=== PATIENT | female | born 1940 | race Caucasian/White ===

== ENCOUNTER 2023-04-29 12:58 | Inpatient (IN) ==
--- NOTE | 2023-04-29 13:13 | Emergency Department Note ---
Impression & Plan Complete heart block, Generalized weakness ED Provider Note Name: AMANDA PECK Age: 83 Sex: Female Arrives Via: Ambulance Informant: Patient and EMS (obtain further information via their command call discussing management and evaluation.) ED Provider: Diego Farnsworth MD Chief Complaint: Weakness Impression: As per impressions above Medical Decision Makin-year-old female arrives for evaluation of profound weakness. She is noted to be in complete heart block and was sent here by PCP for finding this. Patient already held her atenolol for the last 2 days because she had been feeling well. No concerns for possible overdose. She does not have any findings of renal failure. No clear cause for this other than primary electrical cardiac. Findings are not consistent with ACS. She is not in pulmonary edema or significant cardiac failure at this point. I consulted cardiology early on in her stay who agree with plan for hospitalization and they will follow along and possible pacemaker tomorrow. Patient without any other complaints they do not feel this is consistent with PE and or other. There is no indication of need for CT angiography at this time. Triage/Nursing Notes reviewed by Me Differential:Complete heart block, type II blocks, electrolyte imbalance, renal failure, ACS, CHF, infectious etiology, many other pathologies considered Vital Signs: reviewed and remarkable for bradycardia Labs:ED labs Reviewed by me and remarkable for no significant abnormalities Imagin view chest x-ray as per my interpretation no infiltrate or effusion appreciated. EKG:As per my interpretation. Indication weakness. Bradycardia with a heart rate of 38. Findings consistent with complete heart block. QTc 450. No ectopy nor ischemia appreciated. When compared to July 11, 2007 EKG she is now in complete heart block Cardiac/Tele Monitoring: Cardiac Monitoring: An Order was placed for continuous cardiac monitoring. The monitor shows a rate of 40 with a heart block rhythm. Consults:Dr Knapp Cardiology, Dr Evangelista [place] Hospitalist Plan: Disposition:Hospitalization. Condition: Good History of Present Illness: 83-year-old female arrives for evaluation of bradycardia. Patient notes that she woke yesterday morning feeling severely fatigued and weak. Notes mild shortness of breath with exertion but no significant breathing difficulty. Denies any chest pain, syncope, lightheadedness, nausea, vomiting, fevers, chills, back pain, abdominal pain or other concerning signs or symptoms. She had not noticed any palpitations or irregular heartbeats. Patient was seen at her PCP office today where she was noted to be severely bradycardic and was sent to the ER for further evaluation. Patient denies any previous cardiac issues other than periodic palpitations over the years that were attributed to anxiety. She does admit that she did not take her atenolol the last 2 mornings just because she was feeling so weak. She does have a history of some swelling in her legs for which she is on as needed Lasix p.o. EMS called and route noting a concern for complete heart block. Hypertension. No interventions prior to arrival given patient awake alert oriented GCS 15. Past Medical History: GERD, hypertension, anxiety/depression Home Medications:See Below Allergies: penicillin and amoxicillin Vitals:Blood Pressure: 178/68, Pulse 34, RR 13, T 36.7C, O2 93% on RA Physical Exam: GENERAL: Patient is well appearing and in no acute distress. RESPIRATORY: No dyspnea. Clear to auscultation and equal bilaterally. CARDIOVASCULAR: Bradycardia GASTROINTESTINAL: Abdomen soft, non-tender, no peritonitis. EXTREMITIES: Normal motion all extremities, no cyanosis, no edema. NEUROLOGIC: Alert and oriented. No focal neurologic deficits appreciated SKIN: No rash, no jaundice, no diaphoresis. PSYCH: Appropriate GCS: 15 ED Course: Times/Reassessments: Patient stable throughout she is comfortable in no distress. Diego Farnsworth MD Past Med/Surg History Medical History Degenerative joint disease of left knee Sciatica Acute sinusitis Anxiety Esophageal reflux Hypertension Impaired fasting glucose Noncompliance with treatment Osteoarthritis Supraventricular tachycardia Thyroid disorder Vitamin D deficiency Surgical History No pertinent past surgical history Family History Father Congestive heart failure Mother Myocardial infarction Denies family history of Ovarian cancer Prostate cancer Breast cancer Lung cancer Colorectal cancer Social History Smoking Status: Never smoker Second Hand Exposure: No; Do You Dip or Chew Tobacco: No; Hx Alcohol Use: No Hx Substance Use: No Preferred Language: Andorran Communication Ability: Effective Visual Impairment: No Limitations Hearing Ability: Normal Nurse Wound Required: No marital status: / Current Living Situation: Alone current occupational status: retired Feels Safe at Home: Yes Childhood Exposure to Second-Hand Smoke: No Diet: regular caffeine: No during the past year weight has: remained stable Dental Care, Regularly: Yes Physical Activity Frequency: 1-2 Times per Week Seatbelt Use: always Sunscreen Use: No Assistive Devices: None Allergies Allergies Allergy/AdvReac Type Severity Reaction Status Date / Time Penicillins Allergy Mild Rash Verified 04/29/23 11:32 amoxicillin [From Amoxil] AdvReac Rash Verified 04/29/23 11:32 Home Meds Home Medications Medication Instructions Recorded Confirmed famotidine 20 mg tablet (Pepcid) 20 mg PO DAILY 12/12/18 04/29/23 glucosamine sulfate 500 mg tablet 500 mg PO TID 12/12/18 04/29/23 (Glucosamine) multivitamin,rw-[id number]-[id number] 1 tab PO DAILY 12/12/18 04/29/23 (Complete Multivitamin tablet) cholecalciferol (vitamin D3) 25 25 mcg PO DAILY 03/19/23 04/29/23 mcg (1,000 unit) tablet Previous Rx's Medication Instructions Recorded atenolol 25 mg tablet 25 mg PO DAILY #90 tabs 03/09/23 buspirone 5 mg tablet 5 mg PO TID #270 tabs 03/17/23 furosemide 20 mg tablet See Rx Instructions PO Q OTHER DAY 04/16/23 PRN Fluid Retention #30 tabs Results & Data (ED) Vital Signs Vital Signs - 24 hr 04/29/23 13:04 04/29/23 13:04 04/29/23 13:06 Temperature 36.7 C Temperature Source Oral Pulse Rate 36 L 36 L Pulse Rate from SpO2 Sensor 36 L Respiratory Rate 22 Respiratory Effort / Characteristics Non-Labored Spontaneous Respiratory Depth Normal Respiratory Pattern Regular Blood Pressure 198/63 H Blood Pressure Mean 108 Pulse Oximetry 94 94 94 Oxygen Delivery Method Room Air Room Air Oxygen Flow Rate 0 Sepsis Recent Fever Within 48 Hours No Sepsis New/Unexplained Change in Mental Status N/A Sepsis Action Taken by Nursing No Action Required 04/29/23 13:10 04/29/23 13:13 04/29/23 13:13 Temperature Temperature Source Pulse Rate 35 L 35 L Pulse Rate from SpO2 Sensor 35 L Respiratory Rate 17 16 Respiratory Effort / Characteristics Respiratory Depth Respiratory Pattern Blood Pressure 201/61 H Blood Pressure Mean 77 Pulse Oximetry 92 Oxygen Delivery Method Oxygen Flow Rate Sepsis Recent Fever Within 48 Hours Sepsis New/Unexplained Change in Mental Status Sepsis Action Taken by Nursing 04/29/23 13:16 04/29/23 13:16 04/29/23 13:20 Temperature Temperature Source Pulse Rate 34 L 34 L Pulse Rate from SpO2 Sensor 34 L 34 L Respiratory Rate 13 7 L Respiratory Effort / Characteristics Respiratory Depth Respiratory Pattern Blood Pressure 188/54 H Blood Pressure Mean 103 Pulse Oximetry 92 95 Oxygen Delivery Method Room Air Oxygen Flow Rate Sepsis Recent Fever Within 48 Hours Sepsis New/Unexplained Change in Mental Status Sepsis Action Taken by Nursing 04/29/23 13:30 04/29/23 13:30 04/29/23 13:31 Temperature Temperature Source Pulse Rate 34 L 35 L Pulse Rate from SpO2 Sensor 35 L Respiratory Rate 10 L Respiratory Effort / Characteristics Respiratory Depth Respiratory Pattern Blood Pressure 180/80 H Blood Pressure Mean 136 Pulse Oximetry 93 Oxygen Delivery Method Oxygen Flow Rate Sepsis Recent Fever Within 48 Hours Sepsis New/Unexplained Change in Mental Status Sepsis Action Taken by Nursing 04/29/23 13:40 04/29/23 13:45 04/29/23 13:45 Temperature Temperature Source Pulse Rate 34 L 35 L Pulse Rate from SpO2 Sensor 34 L 35 L Respiratory Rate 11 L 10 L Respiratory Effort / Characteristics Respiratory Depth Respiratory Pattern Blood Pressure 174/81 H Blood Pressure Mean 131 Pulse Oximetry 95 94 Oxygen Delivery Method Oxygen Flow Rate Sepsis Recent Fever Within 48 Hours Sepsis New/Unexplained Change in Mental Status Sepsis Action Taken by Nursing 04/29/23 13:50 04/29/23 14:00 04/29/23 14:00 Temperature Temperature Source Pulse Rate 34 L 33 L Pulse Rate from SpO2 Sensor 34 L 33 L Respiratory Rate 20 16 Respiratory Effort / Characteristics Respiratory Depth Respiratory Pattern Blood Pressure 166/72 H Blood Pressure Mean 106 Pulse Oximetry 95 94 Oxygen Delivery Method Oxygen Flow Rate Sepsis Recent Fever Within 48 Hours Sepsis New/Unexplained Change in Mental Status Sepsis Action Taken by Nursing 04/29/23 14:10 04/29/23 14:20 04/29/23 14:30 Temperature Temperature Source Pulse Rate 34 L 35 L 35 L Pulse Rate from SpO2 Sensor 33 L 37 L 36 L Respiratory Rate 15 13 19 Respiratory Effort / Characteristics Respiratory Depth Respiratory Pattern Blood Pressure Blood Pressure Mean Pulse Oximetry 95 93 93 Oxygen Delivery Method Oxygen Flow Rate Sepsis Recent Fever Within 48 Hours Sepsis New/Unexplained Change in Mental Status Sepsis Action Taken by Nursing 04/29/23 14:32 04/29/23 14:32 04/29/23 14:40 Temperature Temperature Source Pulse Rate 35 L 34 L Pulse Rate from SpO2 Sensor 35 L 34 L Respiratory Rate 3 L 12 Respiratory Effort / Characteristics Respiratory Depth Respiratory Pattern Blood Pressure 191/65 H Blood Pressure Mean 95 Pulse Oximetry 94 94 Oxygen Delivery Method Oxygen Flow Rate Sepsis Recent Fever Within 48 Hours Sepsis New/Unexplained Change in Mental Status Sepsis Action Taken by Nursing 04/29/23 14:46 04/29/23 14:46 04/29/23 14:50 Temperature Temperature Source Pulse Rate 34 L 33 L Pulse Rate from SpO2 Sensor 34 L 33 L Respiratory Rate 12 16 Respiratory Effort / Characteristics Respiratory Depth Respiratory Pattern Blood Pressure 175/64 H Blood Pressure Mean 115 Pulse Oximetry 95 96 Oxygen Delivery Method Oxygen Flow Rate Sepsis Recent Fever Within 48 Hours Sepsis New/Unexplained Change in Mental Status Sepsis Action Taken by Nursing 04/29/23 15:00 04/29/23 15:01 04/29/23 15:01 Temperature Temperature Source Pulse Rate 32 L 33 L Pulse Rate from SpO2 Sensor 35 L 33 L Respiratory Rate 12 14 Respiratory Effort / Characteristics Respiratory Depth Respiratory Pattern Blood Pressure 170/56 H Blood Pressure Mean 93 Pulse Oximetry 93 93 Oxygen Delivery Method Oxygen Flow Rate Sepsis Recent Fever Within 48 Hours Sepsis New/Unexplained Change in Mental Status Sepsis Action Taken by Nursing 04/29/23 15:10 04/29/23 15:16 04/29/23 15:16 Temperature Temperature Source Pulse Rate 33 L 32 L Pulse Rate from SpO2 Sensor 33 L 32 L Respiratory Rate 10 L 9 L Respiratory Effort / Characteristics Respiratory Depth Respiratory Pattern Blood Pressure 168/56 H Blood Pressure Mean 106 Pulse Oximetry 95 94 Oxygen Delivery Method Oxygen Flow Rate Sepsis Recent Fever Within 48 Hours Sepsis New/Unexplained Change in Mental Status Sepsis Action Taken by Nursing 04/29/23 15:20 04/29/23 15:30 04/29/23 15:31 Temperature Temperature Source Pulse Rate 33 L 34 L 33 L Pulse Rate from SpO2 Sensor 33 L 35 L 33 L Respiratory Rate 13 15 15 Respiratory Effort / Characteristics Respiratory Depth Respiratory Pattern Blood Pressure Blood Pressure Mean Pulse Oximetry 93 93 93 Oxygen Delivery Method Room Air Oxygen Flow Rate Sepsis Recent Fever Within 48 Hours Sepsis New/Unexplained Change in Mental Status Sepsis Action Taken by Nursing 04/29/23 15:31 04/29/23 15:40 02/15/24 15:45 Temperature Temperature Source Pulse Rate 32 L Pulse Rate from SpO2 Sensor 33 L Respiratory Rate 15 Respiratory Effort / Characteristics Respiratory Depth Respiratory Pattern Blood Pressure 161/62 H 172/69 H Blood Pressure Mean 102 124 Pulse Oximetry 93 Oxygen Delivery Method Oxygen Flow Rate Sepsis Recent Fever Within 48 Hours Sepsis New/Unexplained Change in Mental Status Sepsis Action Taken by Nursing 04/29/23 15:45 04/29/23 15:50 04/29/23 16:00 Temperature Temperature Source Pulse Rate 34 L 33 L Pulse Rate from SpO2 Sensor 34 L 33 L Respiratory Rate 15 15 Respiratory Effort / Characteristics Respiratory Depth Respiratory Pattern Blood Pressure 161/64 H Blood Pressure Mean 127 Pulse Oximetry 94 93 Oxygen Delivery Method Oxygen Flow Rate Sepsis Recent Fever Within 48 Hours Sepsis New/Unexplained Change in Mental Status Sepsis Action Taken by Nursing 04/29/23 16:00 04/29/23 16:10 04/29/23 16:15 Temperature Temperature Source Pulse Rate 33 L 32 L 33 L Pulse Rate from SpO2 Sensor 34 L 34 L 33 L Respiratory Rate 13 Respiratory Effort / Characteristics Respiratory Depth Respiratory Pattern Blood Pressure Blood Pressure Mean Pulse Oximetry 93 92 93 Oxygen Delivery Method Oxygen Flow Rate Sepsis Recent Fever Within 48 Hours Sepsis New/Unexplained Change in Mental Status Sepsis Action Taken by Nursing 04/29/23 16:15 04/29/23 16:20 04/29/23 16:30 Temperature Temperature Source Pulse Rate 35 L Pulse Rate from SpO2 Sensor 34 L Respiratory Rate Respiratory Effort / Characteristics Respiratory Depth Respiratory Pattern Blood Pressure 161/68 H 178/68 H Blood Pressure Mean 127 128 Pulse Oximetry 93 Oxygen Delivery Method Oxygen Flow Rate Sepsis Recent Fever Within 48 Hours Sepsis New/Unexplained Change in Mental Status Sepsis Action Taken by Nursing 04/29/23 16:30 Temperature Temperature Source Pulse Rate 34 L Pulse Rate from SpO2 Sensor 34 L Respiratory Rate Respiratory Effort / Characteristics Respiratory Depth Respiratory Pattern Blood Pressure Blood Pressure Mean Pulse Oximetry 93 Oxygen Delivery Method Oxygen Flow Rate Sepsis Recent Fever Within 48 Hours Sepsis New/Unexplained Change in Mental Status Sepsis Action Taken by Nursing Laboratory Data 04/29/23 13:10 04/29/23 13:10 Lab Results 04/29/23 Range/Units 13:10 WBC 6.91 (4.8-10.8) K/ul RBC 4.78 (4.20-5.40) M/uL Hgb 15.1 (12.0-16.0) g/dl Hct 44.3 (37.0-47.0) % MCV 92.7 (80.0-100.0) fL MCH 31.6 (25.0-34.0) pg MCHC 34.1 (32.0-36.0) g/dL RDW Std Deviation 45.5 (36.4-46.3) fL RDW Coeff of Kia 13.5 (11.5-14.5) % Plt Count 228 (130-400) K/uL MPV 10.5 (9.4-12.4) fL Immature Gran % (Auto) 0.3 % Neut % (Auto) 57.3 % Lymph % (Auto) 31.1 % [place]in[place] % (Auto) 9.6 % Eos % (Auto) 0.7 % Baso % (Auto) 1.0 % Neut # (Auto) 3.96 (1.40-6.50) K/uL Lymph # (Auto) 2.15 (1.20-3.40) K/uL [place] # (Auto) 0.66 H (0.11-0.59) K/uL Eos # (Auto) 0.05 (0.00-0.50) K/uL Baso # (Auto) 0.07 (0.00-0.20) K/uL Immature Gran # (Auto) 0.02 (0.01-0.20) K/uL PT 10.9 (9.0-12.0) Seconds INR 1.0 (0.9-1.1) APTT 26 (21-31) Seconds PTT Ratio 0.9 Sodium 138 (136-145) mmol/L Potassium 4.1 (3.5-5.1) mmol/L Chloride 106 (98-107) mmol/L Carbon Dioxide 20 L (21-32) mmol/L Anion Gap 12 H (3-11) BUN 19 (6-23) mg/dl Creatinine 1.03 (0.6-1.2) mg/dl Est Cr Clr Drug Dosing 42.3 ml/min Est GFR ( Amer) 57.8 ml/min Est GFR (Non-Af Amer) 49.9 ml/min BUN/Creatinine Ratio 18.4 (10-20) Glucose 122 H (70-99(Fasting)) mg/dl Calcium 9.9 (8.6-10.3) mg/dl Magnesium 2.2 (1.7-2.4) mg/dl Troponin I High Sens 10.0 (0-14) pg/ml B-Natriuretic Peptide 904 H (0-100) pg/ml TSH 3.672 (0.300-4.500) uIu/ml Lyme Disease Screen Negative (Negative) Imaging Data Radiologist's Impression: Chest X-Ray 04/29/23 13:11 XR chest 1V portable HISTORY: weakness COMPARISON: Chest 07/11/2007. FINDINGS: No pneumothorax. No pleural effusions. The cardiac silhouette is mildly enlarged. There is mild elevation of the right hemidiaphragm, unchanged. Mild interstitial thickening which is likely chronic. No focal lung consolidations to suggest a pneumonia. No evidence for pulmonary edema. No acute fractures identified. IMPRESSION: Mild cardiomegaly. Otherwise, no acute process within the chest. ACT 112: Negative or not required by law. Electronically signed by: Mickey Miranda M.D. 04/29/2023 1:30 PM Discharge Plan Visit Data Chief Complaint: Bradycardia ED Provider: Diego Farnsworth Discharge Problem: Complete heart block, Generalized weakness Forms Stand Alone Forms: [employer] [facility] Prescriptions Prescriptions: No Action atenolol 25 mg tablet 25 mg PO DAILY Qty: 90 3RF cholecalciferol (vitamin D3) 25 mcg (1,000 unit) tablet 25 mcg PO DAILY furosemide 20 mg tablet See Rx Instructions PO Q OTHER DAY PRN (Reason: Fluid Retention) Qty: 30 2RF Rx Instructions: Take 1/2 to 1 tablet PO every other day PRN; buspirone 5 mg tablet 5 mg PO TID Qty: 270 3RF famotidine [Pepcid] 20 mg tablet 20 mg PO DAILY glucosamine sulfate [Glucosamine] 500 mg tablet 500 mg PO TID Complete Multivitamin tablet 1 tab PO DAILY Referrals Referrals: Jeanne Recio CRNP [Primary Care Provider] -
--- NOTE | 2023-04-29 13:31 | XRay Report ---
XR chest 1V portable HISTORY: weakness COMPARISON: Chest 07/11/2007. FINDINGS: No pneumothorax. No pleural effusions. The cardiac silhouette is mildly enlarged. There is mild elevation of the right hemidiaphragm, unchanged. Mild interstitial thickening which is likely ch ronic. No focal lung consolidations to suggest a pneumonia. No evidence for pulmonary edema. No acute fractures identified. IMPRESSION: Mild cardiomegaly. Otherwise, no acute process within the chest. ACT 112: Negative or not required by law. Electronically signed by: Mickey Miranda M.D. 04/29/2023 1:30 PM
[2023-04-29 13:44] LABS: Basophils # (auto) 0.07 K/uL (0.00-0.20); Eosinophils # (auto) 0.05 K/uL (0.00-0.50); Eosinophils % (auto) 0.7 %; Hematocrit (blood only) 44.3 % (37.0-47.0); Hemoglobin 15.1 g/dl (12.0-16.0); Immature Granulocytes # (auto) 0.02 K/uL (0.01-0.20); Immature Granulocytes % (auto) 0.3 %; Lymphocytes # (auto) 2.15 K/uL (1.20-3.40); Lymphocytes % (auto) 31.1 %; Mean Corpuscular Hemoglobin 31.6 pg (25.0-34.0); Mean Corpuscular Hgb Conc 34.1 g/dL (32.0-36.0); Mean Corpuscular Volume 92.7 fL (80.0-100.0); Mean Platelet Volume 10.5 fL (9.4-12.4); Monocytes # (auto) 0.66 K/uL (0.11-0.59); Monocytes % (auto) 9.6 %; Neutrophils # (auto) 3.96 K/uL (1.40-6.50); Neutrophils % (auto) 57.3 %; Platelet Count 228 K/uL (130-400); RDW Coefficient of Variation 13.5 % (11.5-14.5); RDW Standard Deviation 45.5 fL (36.4-46.3); Red Blood Count 4.78 M/uL (4.20-5.40); White Blood Count 6.91 K/ul (4.8-10.8)
[2023-04-29 14:03] LABS: BUN Creatinine Ratio 18.4 (10-20); Calcium 9.9 mg/dl (8.6-10.3); Creatinine Clr Calc Pharmacy 42.3 ml/min; Est GFR (African American) 57.8 ml/min; Est GFR (Non-African American) 49.9 ml/min; Magnesium 2.2 mg/dl (1.7-2.4); Potassium 4.1 mmol/L (3.5-5.1)
[2023-04-29 14:07] LABS: Partial Thromboplastin Ratio 0.9; Partial Thromboplastin Time 26 Seconds (21-31); Prothrombin Time 10.9 Seconds (9.0-12.0)
--- NOTE | 2023-04-29 14:30 | History & Physical Report ---
Date of Service April 29, 2023 Assessment & Plan (1) Symptomatic bradycardia: Plan: Symptomatic bradycardia -Echo completed by cardiology, has mild aortic stenosis otherwise normal on initial read with formal read pending - EKG reviewed. Third-degree heart block. consistent P wave interval ~600ms, ventricular rate of ~35-40 with narrow qrs 76 consistent with third-degree heart block with junctional escape. Without hypotension in the ER TSH normal Magnesium normal Potassium 4.1 -Lyme panel is pending, no other symptoms of this with the exception of left knee pain which is chronic due to arthritis and unchanged Previously on atenolol, this has been held for 2 days due to weakness. Remains held on admission Anticipate pacemaker placement, cardiology consulted, n.p.o. at midnight. Pacer pads in place. At time of admission patient is hemodynamically stable and external pacing is not required - Mild Lower extremity venous stasis. Denies history of CHF. BNP 904. Admitting weight 86 kg, past weights have ranged from 83-86 kg. Chest x-ray without evidence of pulmonary edema or pleural effusions. Mild cardiomegaly is noted Bedside read of echo with no reduced EF. Will treat symptomatic bradycardia above and follow. (2) Osteoarthritis: Plan: Currently left hip and left knee (3) Supraventricular tachycardia: Plan: - Atenolol held. opal on admit (4) Hypertension: Plan: Hypertension Mild fluctuating between [id number] at bedside recheck, suspect reactive. Continue to hold atenolol Treat bradycardia above, and then follow BP trend Plan DVT prophylaxis: Heparin Disposition: PCU Diet: N.p.o. at midnight CODE STATUS: Full code History of Present Illness Primary Care Provider: HUMA Villalobos Linda is an 83-year-old female who presented with weakness and fatigue and he was found to have third-degree heart block while in the ER. Patient presented to her PCP today for weakness and fatigue, and was referred to the ER for symptomatic bradycardia. She is on atenolol at baseline but has not taken this for 2 days. Comparison EKG 06/2007: Sinus with PVCs, AL 180 High-sensitivity troponin is not elevated EKG reviewed. Third-degree heart block. consistent P wave interval ~600ms, ventricular rate of ~40 with narrow qrs 76 consistent with third-degree heart block with junctional escape. Patient seen at the bedside with multiple family members present. She reports that she has had fatigue and global weakness which caused her to present to the ER after an evaluation for this showing bradycardia; she has not had chest pain or chest pressure at any point. She denies syncope. She has not had any falls. She denies palpitations. Denies history of A-fib/a flutter. Denies history of ME. She does not have pets, has not had any recent tick bites, and denies rashes. She does have some left knee arthritis for which she gets injections otherwise denies knee pain. No numbness/tingling or neuropathy. No focal extremity weakness. No vision change. No headache. No prior history of heart Medical History: Reviewed Medications: Reviewed Surgical History: Reviewed Family history: Reviewed Allergies: Reviewed Social History: Reviewed Code Status: Full Allergies Allergy/AdvReac Type Severity Reaction Status Date / Time Penicillins Allergy Mild Rash Verified 04/29/23 11:32 amoxicillin [From Amoxil] AdvReac Rash Verified 04/29/23 11:32 Home Medications Medication Instructions Recorded Confirmed Type famotidine 20 mg tablet (Pepcid) 20 mg PO DAILY 12/12/18 04/29/23 History glucosamine sulfate 500 mg tablet 500 mg PO TID 12/12/18 04/29/23 History (Glucosamine) multivitamin,jc-lhne-ghddvezc 1 tab PO DAILY 12/12/18 04/29/23 History (Complete Multivitamin tablet) atenolol 25 mg tablet 25 mg PO DAILY #90 tabs 03/09/23 04/29/23 Rx buspirone 5 mg tablet 5 mg PO TID #270 tabs 03/17/23 04/29/23 Rx cholecalciferol (vitamin D3) 25 25 mcg PO DAILY 03/19/23 04/29/23 History mcg (1,000 unit) tablet furosemide 20 mg tablet See Rx Instructions PO Q OTHER DAY 04/16/23 04/29/23 Rx PRN Fluid Retention #30 tabs Past Med/Surg History Medical History Degenerative joint disease of left knee Sciatica Acute sinusitis Anxiety Esophageal reflux Hypertension Impaired fasting glucose Noncompliance with treatment Osteoarthritis Supraventricular tachycardia Thyroid disorder Vitamin D deficiency Surgical History No pertinent past surgical history Family History Father Congestive heart failure Mother Myocardial infarction Denies family history of Ovarian cancer Prostate cancer Breast cancer Lung cancer Colorectal cancer Social History Smoking Status: Never smoker Second Hand Exposure: No; Do You Dip or Chew Tobacco: No; Hx Alcohol Use: No Hx Substance Use: No Preferred Language: Egyptian Communication Ability: Effective Visual Impairment: No Limitations Hearing Ability: Normal Dramatic Critic Required: No marital status: / Current Living Situation: Alone current occupational status: retired Feels Safe at Home: Yes Childhood Exposure to Second-Hand Smoke: No Diet: regular caffeine: No during the past year weight has: remained stable Dental Care, Regularly: Yes Physical Activity Frequency: 1-2 Times per Week Seatbelt Use: always Sunscreen Use: No Assistive Devices: None Physical Exam Physical Exam: General: A&Ox3. NAD. Cooperative. Skin: No rashes HEENT: Atrauatic, normocephalic. Vision/hearing intact Pulm: CTAB A&P. -wheezes, -rales, -rhonchi. Symmetrical chest rise. No increased work of breathing. No respiratory distress. Cardiac: regular, bradycardic +sm-rg. Radial pulses intact and symmetrical. Abdominal: Nontender, nondistended, soft. BS present. Results & Data Results & Data Vital Signs (Past 12 Hours) Vital Signs Temp Pulse Resp BP Pulse Ox O2 Del Method O2 Flow Rate 04/29/23 13:31 35 L 04/29/23 13:20 34 L 7 L 95 Room Air 04/29/23 13:16 188/54 H 04/29/23 13:16 34 L 13 92 04/29/23 13:13 201/61 H 04/29/23 13:13 35 L 16 92 04/29/23 13:10 35 L 17 04/29/23 13:06 36 L 94 04/29/23 13:04 94 Room Air 0 04/29/23 13:04 36.7 C 36 L 22 198/63 H 94 Room Air PG Care Time/CCT Total # of Minutes Spent Total Time Spent with Patient: Total time spent is greater than 50% in coordination of care (as documented) at patient's floor/unit and/or counseling patient: Coding Level of Care Code 99074 INT INP/OBS CARE MIN Diagnoses Symptomatic bradycardia R00.1 Osteoarthritis M19.90 Supraventricular tachycardia I47.1 Hypertension I10
--- NOTE | 2023-04-29 15:54 | Cardiology Consultation ---
Date of Consultation April 29, 2023 Assessment & Plan (1) High-grade atrioventricular block: (2) Symptomatic bradycardia: (3) Hypertension: (4) Aortic valve sclerosis: Plan ASSESSMENT/PLAN: 1. High-grade AV block: On telemetry, at times appears to be complete heart block with junctional escape rhythm. But mostly on telemetry and on ECG, high- grade AV block with heart rates remaining in the 30s. Asymptomatic at rest. Recommend bedrest. Pacer pads in place which can be used if she becomes symptomatic at rest. Temporary pacemaker not necessary at this time. Discussed and recommended permanent pacemaker. She was agreeable. Electrophysiology aware and will meet her tomorrow with anticipated pacemaker placement. N.p.o. after midnight. Discontinue her low-dose atenolol (last dose 04/28/23 PM). No obvious reversible cause. 2. Hypertension: Blood pressure elevated but would not aggressively manage with her current high-grade AV block and bradycardia. Avoid AV stacey blocking agents. 3. Sclerotic aortic valve: Borderline stenosis. Discussed with patient. Can be followed over time with surveillance echo in approximately 3 to 5 years or sooner for signs or symptoms of more significant aortic stenosis. 4. Disposition: Electrophysiology, Dr. Quiros, will see her tomorrow. We discussed her presentation. Plan on pacemaker placement tomorrow. Patient care discussed with Dr. Farnsworth of the emergency department, and Dr. Evangelista, of the admitting hospitalist service. Highly complex medical issues. Thank you for allowing me to participate in the care of your patient. Please call for any other questions or concerns. Sincerely, Russ Broussard M.D. History of Present Illness Reason for Consultation: heart block Requesting Physician: Dr. Farnsworth Attending Physician: Dr. Farnsworth History of Present Illness Ms. García is a very pleasant 83-year-old female with a history significant for hypertension and SVT. She presented to the emergency department on 04/29/2023 after going to her PCP office earlier in the day. On 04/28/2023, while ambulating in her home, she felt tired and weak. She denied palpitations, chest pain, shortness of breath. She checked her heart rate this morning and it was in the 30s. She went to her PCP who confirmed heart rate in the 30s. She was instructed to go to the emergency department and went via ambulance. While in the emergency department, she was noted to be in high-grade AV block with heart rates in the 30s and with hypertension. She continued to deny chest pain, shortness of breath, syncope, near syncope, palpitations, edema, or bleeding such as melena, hematochezia, or hematuria. While at rest, she is completely asymptomatic. She does not exercise at home due to bilateral knee pain and describes herself is rather sedentary. She does not spend much time outdoors and does not have any animals such as dogs. She does not recall any recent tick bite. She denies rash, fevers, nausea, vomiting, diarrhea. Review of systems: As above. Review of systems otherwise negative/unremarkable. Family history: No known premature CAD. Father had stroke. Mother had CAD in her 80s. Social history: She denies tobacco, alcohol, drug abuse. She is a . No children. She lives alone. She was accompanied in the ER room by her brother, sister, niece, and nephews. Allergies Allergy/AdvReac Type Severity Reaction Status Date / Time Penicillins Allergy Mild Rash Verified 04/29/23 11:32 amoxicillin [From Amoxil] AdvReac Rash Verified 04/29/23 11:32 Home Medications Medication Instructions Recorded Confirmed Type famotidine 20 mg tablet (Pepcid) 20 mg PO DAILY 12/12/18 04/29/23 History glucosamine sulfate 500 mg tablet 500 mg PO TID 12/12/18 04/29/23 History (Glucosamine) multivitamin,[id number] 1 tab PO DAILY 12/12/18 04/29/23 History (Complete Multivitamin tablet) atenolol 25 mg tablet 25 mg PO DAILY #90 tabs 03/09/23 04/29/23 Rx buspirone 5 mg tablet 5 mg PO TID #270 tabs 03/17/23 04/29/23 Rx cholecalciferol (vitamin D3) 25 25 mcg PO DAILY 03/19/23 04/29/23 History mcg (1,000 unit) tablet furosemide 20 mg tablet See Rx Instructions PO Q OTHER DAY 04/16/23 04/29/23 Rx PRN Fluid Retention #30 tabs Patient History Medical History Degenerative joint disease of left knee Sciatica Acute sinusitis Anxiety Esophageal reflux Hypertension Impaired fasting glucose Noncompliance with treatment Osteoarthritis Supraventricular tachycardia Thyroid disorder Vitamin D deficiency Surgical History No pertinent past surgical history Family History Father Congestive heart failure Mother Myocardial infarction Denies family history of Ovarian cancer Prostate cancer Breast cancer Lung cancer Colorectal cancer Social History Smoking Status: Never smoker Second Hand Exposure: No; Do You Dip or Chew Tobacco: No; Hx Alcohol Use: No Hx Substance Use: No Preferred Language: Hungarian Communication Ability: Effective Visual Impairment: No Limitations Hearing Ability: Normal Line Ordering Clinician Required: No marital status: / Current Living Situation: Alone current occupational status: retired Feels Safe at Home: Yes Childhood Exposure to Second-Hand Smoke: No Diet: regular caffeine: No during the past year weight has: remained stable Dental Care, Regularly: Yes Physical Activity Frequency: 1-2 Times per Week Seatbelt Use: always Sunscreen Use: No Assistive Devices: None Physical Exam Physical Exam: Gen.: No acute distress. Alert and oriented. HEENT: Anicteric sclera. Neck: No significant JVD. No bruits. Normal carotid upstrokes bilaterally. Cardiac: PMI was nondisplaced. No ventricular heave. Regular and bradycardic in the 30s. Normal S1-S2. 1/6 early peaking systolic ejection murmur best heard at the right upper sternal border. Pulmonary: Clear to auscultation bilaterally without wheezes, rales, or rhonchi. Abdomen: Soft, nontender, nondistended, with normoactive bowel sounds. No bruits noted. Extremities: 2+ radial pulses bilaterally. 2+ posterior tibialis pulses bilaterally. No edema or cyanosis. Psychiatric: Affect appears appropriate. Results & Data Vital Signs (Past 12 Hours) Vital Signs Temp Pulse Resp BP Pulse Ox O2 Del Method O2 Flow Rate 04/29/23 15:20 33 L 13 93 Room Air 04/29/23 15:16 32 L 9 L 94 04/29/23 15:16 168/56 H 04/29/23 15:10 33 L 10 L 95 04/29/23 15:01 170/56 H 04/29/23 15:01 33 L 14 93 04/29/23 15:00 32 L 12 93 04/29/23 14:50 33 L 16 96 04/29/23 14:46 34 L 12 95 04/29/23 14:46 175/64 H 04/29/23 14:40 34 L 12 94 04/29/23 14:32 35 L 3 L 94 04/29/23 14:32 191/65 H 04/29/23 14:30 35 L 19 93 04/29/23 14:20 35 L 13 93 04/29/23 14:10 34 L 15 95 04/29/23 14:00 33 L 16 94 04/29/23 14:00 166/72 H 04/29/23 13:50 34 L 20 95 04/29/23 13:45 35 L 10 L 94 04/29/23 13:45 174/81 H 04/29/23 13:40 34 L 11 L 95 04/29/23 13:31 35 L 04/29/23 13:30 180/80 H 04/29/23 13:30 34 L 10 L 93 04/29/23 13:20 34 L 7 L 95 Room Air 04/29/23 13:16 188/54 H 04/29/23 13:16 34 L 13 92 04/29/23 13:13 201/61 H 04/29/23 13:13 35 L 16 92 04/29/23 13:10 35 L 17 04/29/23 13:06 36 L 94 04/29/23 13:04 94 Room Air 0 04/29/23 13:04 36.7 C 36 L 22 198/63 H 94 Room Air Laboratory Results Laboratory Results - last 24 hr 04/29/23 13:10 WBC 6.91 RBC 4.78 Hgb 15.1 Hct 44.3 MCV 92.7 MCH 31.6 MCHC 34.1 RDW Std Deviation 45.5 RDW Coeff of Kia 13.5 Plt Count 228 MPV 10.5 Immature Gran % (Auto) 0.3 Neut % (Auto) 57.3 Lymph % (Auto) 31.1 Clarke % (Auto) 9.6 Eos % (Auto) 0.7 Baso % (Auto) 1.0 Neut # (Auto) 3.96 Lymph # (Auto) 2.15 Clarke # (Auto) 0.66 H Eos # (Auto) 0.05 Baso # (Auto) 0.07 Immature Gran # (Auto) 0.02 PT 10.9 INR 1.0 APTT 26 PTT Ratio 0.9 Sodium 138 Potassium 4.1 Chloride 106 Carbon Dioxide 20 L Anion Gap 12 H BUN 19 Creatinine 1.03 Est Cr Clr Drug Dosing 42.3 Est GFR ( Amer) 57.8 Est GFR (Non-Af Amer) 49.9 BUN/Creatinine Ratio 18.4 Glucose 122 H Calcium 9.9 Magnesium 2.2 Troponin I High Sens 10.0 B-Natriuretic Peptide 904 H TSH 3.672 Lyme Disease Screen Negative Diagnostic Findings ECHO 04/29/23: 1. Normal left ventricular size with hyperdynamic systolic function. EF > 70%. No regional wall motion abnormalities. No left ventricular hypertrophy. 2. Moderate left atrial dilation. 3. Sclerotic aortic valve with borderline stenosis. 4. Mild mitral regurgitation. 5. Mild pulmonary hypertension. Estimated RVSP 45 mmHg. 6. Sinus rhythm with high degree AV block and heart rate in the 30s. 7. No prior study available for comparison. Labs reviewed and notable for negative Lyme, normal TSH, normal magnesium, normal high-sensitivity troponin, elevated BNP, normal potassium, stable renal function, normal blood counts. ECG personally reviewed, which demonstrated sinus rhythm with high-grade AV block and heart rates in the 30s. Telemetry personally reviewed: Sinus rhythm with high-grade AV block with heart rate in the 30s. Chest x-ray 04/29/2023: No acute process per radiology. Mild elevation of the right hemidiaphragm. Mild interstitial thickening, likely chronic per radiology. PG Care Time/CCT Total # of Minutes Spent Total Time Spent with Patient: Total time spent is greater than 50% in coordination of care (as documented) at patient's floor/unit and/or counseling patient: Coding Level of Care Code 29807 INT INP/OBS CARE 3/75MIN Diagnoses High-grade atrioventricular block I44.39 Symptomatic bradycardia R00.1 Hypertension I10 Aortic valve sclerosis I35.8
--- NOTE | 2023-04-29 19:31 | XCELERA ---
[id number]
[2023-04-29] MEDS: HEPARIN SOD 5,000 UNIT/0.5 ML VIAL SQ SCH (21:10)
[2023-04-30 04:46] LABS: Appearance Urine Cloudy (Clear); Bacteria Urine Automated 1+ (Negative); Bilirubin Urine Negative (Negative); Blood Urine Negative (Negative); Color Urine Yellow; Epithelial Cell Urine Auto >30 /lpf (0-5); Glucose Urine UA Negative (Negative); Ketones Urine 1+ (Negative); Leukocyte Esterase Urine 1+ (Negative); Nitrite Urine Negative (Negative); Protein Urine Negative (Negative); Specific Gravity Urine 1.019 (1.000-1.030); Urobilinogen Urine Negative (Negative); pH Urine 6.5 (4.5-7.5)
[2023-04-30 05:50] LABS: RBC Urine Automated 0-4 /hpf (0-4)
[2023-04-30 06:13] LABS: Basophils # (auto) 0.06 K/uL (0.00-0.20); Basophils % (auto) 0.8 %; Eosinophils # (auto) 0.12 K/uL (0.00-0.50); Eosinophils % (auto) 1.6 %; Hematocrit (blood only) 41.2 % (37.0-47.0); Hemoglobin 13.9 g/dl (12.0-16.0); Immature Granulocytes # (auto) 0.02 K/uL (0.01-0.20); Immature Granulocytes % (auto) 0.3 %; Lymphocytes # (auto) 2.78 K/uL (1.20-3.40); Lymphocytes % (auto) 37.1 %; Mean Corpuscular Hemoglobin 31.7 pg (25.0-34.0); Mean Corpuscular Hgb Conc 33.7 g/dL (32.0-36.0); Mean Corpuscular Volume 93.8 fL (80.0-100.0); Mean Platelet Volume 10.4 fL (9.4-12.4); Monocytes # (auto) 0.69 K/uL (0.11-0.59); Monocytes % (auto) 9.2 %; Neutrophils # (auto) 3.83 K/uL (1.40-6.50); Platelet Count 203 K/uL (130-400); RDW Coefficient of Variation 13.5 % (11.5-14.5); RDW Standard Deviation 46.4 fL (36.4-46.3); Red Blood Count 4.39 M/uL (4.20-5.40)
[2023-04-30 06:28] LABS: Calcium 9.4 mg/dl (8.6-10.3); Est GFR (African American) 56.5 ml/min; Est GFR (Non-African American) 48.7 ml/min; Magnesium 2.3 mg/dl (1.7-2.4); Potassium 4.5 mmol/L (3.5-5.1)
--- NOTE | 2023-04-30 11:35 | Electrocardiogram Report ---
Test Reason : Blood Pressure : / mmHG Vent. Rate : 037 BPM Atrial Rate : 037 BPM P-R Int : 238 ms QRS Dur : 076 ms QT Int : 514 ms P-R-T Axes : 068 -14 006 degrees QTc Int : 403 ms Marked sinus bradycardia with 1st degree A-V block and 3:1 AV conduction Minimal voltage criteria for LVH, may be normal variant ( R in aVL ) Cannot rule out Anterior infarct , age undetermined Abnormal ECG When compared with ECG of 11-JUL-2007 16:14, Significant changes have occurred Confirmed by Ruben Rodriguez ([id number]) on 04/30/2023 11:34:53 AM Referred By: REFERRED SELF Confirmed By:Ruben Rodriguez
--- NOTE | 2023-04-30 11:50 | Electrocardiogram Report ---
Test Reason : Blood Pressure : / mmHG Vent. Rate : 031 BPM Atrial Rate : 031 BPM P-R Int : 242 ms QRS Dur : 070 ms QT Int : 588 ms P-R-T Axes : 062 -07 043 degrees QTc Int : 422 ms Marked sinus bradycardia with 1st degree A-V block and 3:1 AV conduction Abnormal ECG When compared with ECG of 29-APR-2023 13:03, (unconfirmed) No significant change was found Confirmed by Ruben Rodriguez ([id number]) on 04/30/2023 11:50:06 AM Referred By: REFERRED SELF Confirmed By:Ruben Rodriguez
--- NOTE | 2023-04-30 12:14 | Hospitalist Progress Note ---
Date of Service April 30, 2023 Assessment & Plan (1) Symptomatic bradycardia: Plan: ECG here with ?3rd degree vs Mobitz 2 With fatigue, no syncope or hypotension and in fact is hypertensive Echo with preserved EF, mild MR TSH normal, yne titer neg Previously on atenolol, this has been held for 2 days prior to admission due to weakness. Remains held here Cardiology consult appreciated-plan for PPM hopefully today Pacer pads in place, bed rest Follow BMP, magnesium, keep lytes replete Continue to monitor on tele (2) Osteoarthritis: Plan: left hip and left knee stable takes glucosamine as outpt (3) Supraventricular tachycardia: Plan: H/o such Atenolol held None here (4) Hypertension: Plan: BPs elevated from beig off atenolol and compensating for bradycardia Continue to hold atenolol Treat bradycardia above, and then follow BP trend (5) Esophageal reflux: Plan: add home pepcid back on Plan DVT prophylaxis: Heparin Disposition: continued stay PCU CODE STATUS: Full code, sister Sandra is POA Admission and Anticipated Discharge Date Admission Date: April 29, 2023 Subjective Pt feeling tired, otherwise denies CP, SOB, lightheadedness BPs running high Tele with sinus rhythm with Mobitz 2 second degree AV block 2:1 conduction on my interpretation some ectopic P waves Physical Exam Constitutional: WD/WN, vitals as above Respiratory: normal respiratory effort, lungs clear to auscultation Cardiovascular: Rate/Rhythm: regular rhythm and + bradycardic Gastrointestinal (Abdomen): normal bowel sounds, soft, nontender, no hepatosplenomegaly Psychiatric: A+Ox3, euthymic affect Results & Data Results & Data Vital Signs (Past 12 Hours) Vital Signs Temp Pulse Pulse Resp BP Pulse Ox O2 Del Method 04/30/23 07:59 39 L 04/30/23 07:25 36.4 C L 33 L 17 150/52 H 93 Room Air 04/30/23 02:35 36.3 C L 38 L 16 160/62 H 94 Room Air Laboratory Results CBC, BMP, magnesium reviewed PG Care Time/CCT Total # of Minutes Spent Total Time Spent with Patient: Total time spent is greater than 50% in coordination of care (as documented) at patient's floor/unit and/or counseling patient: Coding Level of Care Code 38979 SUB INP/OBS CARE 2/35MIN Diagnoses Symptomatic bradycardia R00.1 Osteoarthritis M19.90 Supraventricular tachycardia I47.1 Hypertension I10 Esophageal reflux K21.9
[2023-04-30] MEDS: FAMOTIDINE 20 MG TAB PO SCH (12:27)
[2023-04-30] MEDS: busPIRone 5 MG TAB PO SCH (14:11)
--- NOTE | 2023-04-30 14:38 | Pre Anesthesia Assessment ---
Date of Service April 30, 2023 Pre Sedation Assessment Vital Signs Temp Pulse Pulse Resp BP BP Pulse Ox 04/30/23 14:20 35 L 18 183/91 H 96 04/30/23 13:00 36.5 C 35 L 17 180/68 H 94 04/30/23 07:59 39 L 04/30/23 07:25 36.4 C L 33 L 17 150/52 H 93 04/30/23 02:35 36.3 C L 38 L 16 160/62 H 94 04/29/23 23:00 36.4 C L 34 L 18 163/64 H 95 04/29/23 22:00 32 L 04/29/23 21:45 158/62 H 04/29/23 20:55 36.5 C 35 L 20 181/72 H 94 04/29/23 20:20 37 L 15 04/29/23 20:15 202/93 H 04/29/23 20:15 38 L 04/29/23 20:10 36 L 12 04/29/23 20:00 172/73 H 04/29/23 20:00 33 L 04/29/23 19:50 33 L 17 92 04/29/23 19:46 34 L 92 04/29/23 19:46 186/59 H 04/29/23 19:40 33 L 93 04/29/23 19:30 32 L 94 04/29/23 19:30 169/72 H 04/29/23 19:20 32 L 04/29/23 19:15 33 L 04/29/23 19:15 181/74 H 04/29/23 19:10 33 L 04/29/23 19:00 32 L 04/29/23 19:00 178/81 H 04/29/23 18:50 32 L 04/29/23 18:45 182/78 H 04/29/23 18:45 32 L 04/29/23 18:40 32 L 04/29/23 18:31 172/64 H 04/29/23 18:31 33 L 04/29/23 18:30 32 L 04/29/23 18:20 32 L 12 95 04/29/23 18:15 32 L 94 04/29/23 18:15 170/73 H 04/29/23 18:10 33 L 93 04/29/23 18:00 175/69 H 04/29/23 18:00 33 L 96 04/29/23 17:50 31 L 93 04/29/23 17:45 157/69 H 04/29/23 17:45 32 L 93 04/29/23 17:40 33 L 92 04/29/23 17:30 32 L 94 04/29/23 17:30 162/69 H 04/29/23 17:20 32 L 93 04/29/23 17:15 34 L 93 04/29/23 17:15 157/66 H 04/29/23 17:10 35 L 93 04/29/23 17:10 34 L 04/29/23 17:00 33 L 92 04/29/23 17:00 162/69 H 04/29/23 16:50 34 L 93 04/29/23 16:45 33 L 94 04/29/23 16:45 159/68 H 04/29/23 16:40 33 L 93 04/29/23 16:30 34 L 93 04/29/23 16:30 178/68 H 04/29/23 16:20 35 L 93 04/29/23 16:15 161/68 H 04/29/23 16:15 33 L 93 04/29/23 16:10 32 L 13 92 04/29/23 16:00 33 L 93 04/29/23 16:00 161/64 H 04/29/23 15:50 33 L 15 93 04/29/23 15:45 34 L 15 94 04/29/23 15:45 172/69 H 04/29/23 15:40 32 L 15 93 04/29/23 15:31 161/62 H 04/29/23 15:31 33 L 15 93 04/29/23 15:30 34 L 15 93 04/29/23 15:20 33 L 13 93 04/29/23 15:16 32 L 9 L 94 04/29/23 15:16 168/56 H 04/29/23 15:10 33 L 10 L 95 04/29/23 15:01 170/56 H 04/29/23 15:01 33 L 14 93 04/29/23 15:00 32 L 12 93 04/29/23 14:50 33 L 16 96 04/29/23 14:46 34 L 12 95 04/29/23 14:46 175/64 H 04/29/23 14:40 34 L 12 94 O2 Del Method 04/30/23 14:20 Room Air 04/30/23 13:00 Room Air 04/30/23 07:59 04/30/23 07:25 Room Air 04/30/23 02:35 Room Air 04/29/23 23:00 Room Air 04/29/23 22:00 04/29/23 21:45 04/29/23 20:55 Room Air 04/29/23 20:20 04/29/23 20:15 04/29/23 20:15 04/29/23 20:10 04/29/23 20:00 04/29/23 20:00 04/29/23 19:50 04/29/23 19:46 04/29/23 19:46 04/29/23 19:40 04/29/23 19:30 04/29/23 19:30 04/29/23 19:20 04/29/23 19:15 04/29/23 19:15 04/29/23 19:10 04/29/23 19:00 04/29/23 19:00 04/29/23 18:50 04/29/23 18:45 04/29/23 18:45 04/29/23 18:40 04/29/23 18:31 04/29/23 18:31 04/29/23 18:30 04/29/23 18:20 04/29/23 18:15 04/29/23 18:15 04/29/23 18:10 04/29/23 18:00 04/29/23 18:00 04/29/23 17:50 04/29/23 17:45 04/29/23 17:45 04/29/23 17:40 04/29/23 17:30 04/29/23 17:30 04/29/23 17:20 04/29/23 17:15 04/29/23 17:15 04/29/23 17:10 04/29/23 17:10 04/29/23 17:00 04/29/23 17:00 04/29/23 16:50 04/29/23 16:45 04/29/23 16:45 04/29/23 16:40 04/29/23 16:30 04/29/23 16:30 04/29/23 16:20 04/29/23 16:15 04/29/23 16:15 04/29/23 16:10 04/29/23 16:00 04/29/23 16:00 04/29/23 15:50 04/29/23 15:45 04/29/23 15:45 04/29/23 15:40 04/29/23 15:31 04/29/23 15:31 04/29/23 15:30 04/29/23 15:20 Room Air 04/29/23 15:16 04/29/23 15:16 04/29/23 15:10 04/29/23 15:01 04/29/23 15:01 04/29/23 15:00 04/29/23 14:50 04/29/23 14:46 04/29/23 14:46 04/29/23 14:40 Cardiovascular + bradycardic Respiratory + respiratory effort normal Pre-Sedation Airway Assessment Smoking Status: Never smoker Hx Sleep Apnea: No Hx Difficult Intubation: No Short, Thick Neck: No Thyromental Distance: > or= 3.5 Finger Breadths Oral Cavity: + WNL Mallampati Class: III ASA: ASA3 Procedure Planning Contraindications for Sedation: none Current Medications Reviewed: Yes Notes The planned sedation has been discussed with the patient. Informed Consent was obtained. I have identified the patient, determined the appropriateness of sedation and have assessed the patient immediately prior to the procedure. All medicine(s) and interventions are by my order.
[2023-04-30] MEDS: LIDOCAINE 1% LOCAL 20 ML VIAL ONE (16:54)
[2023-04-30] MEDS: VANCOMYCIN HCL 1000MG/20ML VIAL ONE (16:54)
[2023-04-30] MEDS: WATER, STERILE FOR INJ 10 ML VIAL ONE (16:54)
[2023-04-30] MEDS: BUPIVACAINE 0.25% PF 30 ML VIAL ONE (16:54)
[2023-04-30] MEDS: ceFAZolin 330 MG/ML 1 GM VIAL ONE (16:54)
[2023-04-30] MEDS: fentaNYL citrate PF 100 MCG/2 ML VIAL ONE (16:54)
[2023-04-30] MEDS: ONDANSETRON INJ 2 MG/ML 2 ML VIAL ONE (16:55)
[2023-04-30] MEDS: MIDAZOLAM HCL 5 MG/ML 1 ML VIAL ONE (16:55)
--- NOTE | 2023-04-30 16:57 | Post Anesthesia Assessment ---
Date of Service April 30, 2023 Post Sedation Assessment Vital Signs Temp Pulse Pulse Resp BP BP Pulse Ox 04/30/23 14:20 35 L 18 183/91 H 96 04/30/23 13:00 36.5 C 35 L 17 180/68 H 94 04/30/23 07:59 39 L 04/30/23 07:25 36.4 C L 33 L 17 150/52 H 93 04/30/23 02:35 36.3 C L 38 L 16 160/62 H 94 04/29/23 23:00 36.4 C L 34 L 18 163/64 H 95 04/29/23 22:00 32 L 04/29/23 21:45 158/62 H 04/29/23 20:55 36.5 C 35 L 20 181/72 H 94 04/29/23 20:20 37 L 15 04/29/23 20:15 202/93 H 04/29/23 20:15 38 L 04/29/23 20:10 36 L 12 04/29/23 20:00 172/73 H 04/29/23 20:00 33 L 04/29/23 19:50 33 L 17 92 04/29/23 19:46 34 L 92 04/29/23 19:46 186/59 H 04/29/23 19:40 33 L 93 04/29/23 19:30 32 L 94 04/29/23 19:30 169/72 H 04/29/23 19:20 32 L 04/29/23 19:15 33 L 04/29/23 19:15 181/74 H 04/29/23 19:10 33 L 04/29/23 19:00 32 L 04/29/23 19:00 178/81 H 04/29/23 18:50 32 L 04/29/23 18:45 182/78 H 04/29/23 18:45 32 L 04/29/23 18:40 32 L 04/29/23 18:31 172/64 H 04/29/23 18:31 33 L 04/29/23 18:30 32 L 04/29/23 18:20 32 L 12 95 04/29/23 18:15 32 L 94 04/29/23 18:15 170/73 H 04/29/23 18:10 33 L 93 04/29/23 18:00 175/69 H 04/29/23 18:00 33 L 96 04/29/23 17:50 31 L 93 04/29/23 17:45 157/69 H 04/29/23 17:45 32 L 93 04/29/23 17:40 33 L 92 04/29/23 17:30 32 L 94 04/29/23 17:30 162/69 H 04/29/23 17:20 32 L 93 04/29/23 17:15 34 L 93 04/29/23 17:15 157/66 H 04/29/23 17:10 35 L 93 04/29/23 17:10 34 L 04/29/23 17:00 33 L 92 04/29/23 17:00 162/69 H O2 Del Method 04/30/23 14:20 Room Air 04/30/23 13:00 Room Air 04/30/23 07:59 04/30/23 07:25 Room Air 04/30/23 02:35 Room Air 04/29/23 23:00 Room Air 04/29/23 22:00 04/29/23 21:45 04/29/23 20:55 Room Air 04/29/23 20:20 04/29/23 20:15 04/29/23 20:15 04/29/23 20:10 04/29/23 20:00 04/29/23 20:00 04/29/23 19:50 04/29/23 19:46 04/29/23 19:46 04/29/23 19:40 04/29/23 19:30 04/29/23 19:30 04/29/23 19:20 04/29/23 19:15 04/29/23 19:15 04/29/23 19:10 04/29/23 19:00 04/29/23 19:00 04/29/23 18:50 04/29/23 18:45 04/29/23 18:45 04/29/23 18:40 04/29/23 18:31 04/29/23 18:31 04/29/23 18:30 04/29/23 18:20 04/29/23 18:15 04/29/23 18:15 04/29/23 18:10 04/29/23 18:00 04/29/23 18:00 04/29/23 17:50 04/29/23 17:45 04/29/23 17:45 04/29/23 17:40 04/29/23 17:30 04/29/23 17:30 04/29/23 17:20 04/29/23 17:15 04/29/23 17:15 04/29/23 17:10 04/29/23 17:10 04/29/23 17:00 04/29/23 17:00 Recovery Score Activity: Moves 4 extremities Respiration: Deep Breath/Cough Circulation: +/-20-49% PreAnes Value Consciousness: Fully Awake Oxygen Saturation: > 92% On Room Air Discharge Sedation Level of Care: Fast Track Phase II Post Sedation Plan On clinical assessment, the patient appears to have tolerated the sedation without complications. Patient is recovering as anticipated. Patient will continue to be monitored by nursing and may be discharged when sedation discharge criteria are met per below protocol. Upon Completions of procedure up to 15 minutes continue every 5 minute vital signs and the P.A.R. score; then discharge to a Phase I or Fast Track to Phase II per the following guidelines: * Discharge Patient to appropriate Phase II area if PAR is 8 or greater or return to pre- procedure baseline. The post - procedure orders will be as directed. * If PAR score is less than 8 or not return to pre-procedure baseline then patient will follow Phase I monitoring till PAR is reached for Phase II. The Phase I may be done in procedure room or may call to secure a Phase I area. * If naloxone or flumazenil are used for reversal, hold in Phase I for continued monitoring from when last reversal dose was given for a minimum of 60 minutes or longer pending the nurse and/or physician discretion of patient condition before discharge to Phase II. Please call the Sedation Physician to re-evaluate and complete post-note for discharge to Phase II area. Do NOT discharge from procedure sedation or Phase 1 until post- sedation evaluation note is complete by procedure /sedation MD Sedation Discharge Instructions to be given to the patient at discharge to home.
--- NOTE | 2023-04-30 16:57 | Electrophysiology Report ---
Date of Service April 30, 2023 Electrophysiology Procedure Electrophysiology Procedure Report Procedure performed: Implantation of dual-chamber permanent pacemaker with left bundle pacing lead Staff welfare worker: Jag Quiros MD Indication: The patient is a 3-year-old woman who presents to the hospital with complete heart block. Based on her symptoms she was advised to consider implantation of a permanent pacemaker for symptomatic nonreversible AV node dysfunction. Dual-chamber device was selected she is currently in sinus rhythm which to maintain AV synchrony. Procedure in detail: The patient was informed of the risks benefits and alternatives to the intended procedure and she wished to proceed. She was taken to the electrophysiology suite in a fasting state. A preoperative antibiotic had been administered. The patient was monitored electrocardiographically throughout today's procedure and conscious sedation was administered per protocol. The left upper pectoral area is prepped and draped in usual sterile fashion. This area was anesthetized using subcutaneous administration of a xylocaine solution. An incision was made at this site and carried down to the prepectoralis fascia using sharp dissection. Electrocautery was also employed for dissection as well as for hemostasis. A device pocket was fashioned tissues above the pectoralis muscle. Subsequent to this maneuver the left axillary vein was accessed using modified Seldinger technique. A sheath was placed over guidewire at this site used facilitate passage of a pacing lead to the right ventricular apex under fluoroscopic guidance. This lead was fixed to the endocardium with active fixation and left in place to provide backup pacing while the permanent ventricular lead was placed. A sheath was placed over the remaining guidewire and used facilitate passage of the guiding catheter for mapping of the interventricular septum. Once an appropriate location was identified the pacing lead was advanced into the interventricular septum under fluoroscopic guidance. Adequate sensing threshold parameters well as the appropriate electrocardiographic characteristics were obtained prior to removal of the guiding catheter. The proximal portion of the lead was then sutured to prepectoralis fascia using nonabsorbable suture. The previously placed right ventricular apical lead was subsequently moved to the right atrium under fluoroscopic guidance. Adequate sensing threshold parameters were obtained prior to active fixation of this lead to the endocardial surface. The proximal portion lead was then sutured to prepectoralis fascia using nonabsorbable suture. The device pocket was irrigated with antibiotic solution. The leads were then attached to the device. The device and leads were then placed in the pocket and pocket was closed in 3 layers of absorbable suture. Steri-Strips and sterile dressing were applied. The device was tested noninvasively prior to conclusion the procedure. The patient tolerated procedure well there no immediate complications. Equipment used: New pulse generator: Limo Driver [employer]. Model number: [id number] serial number [id number] Right atrial lead: Limo Driver Medtronic. Model number: [id number] serial number [id number] Right ventricular lead: Limo Driver Medtronic. Model number: [id number] serial number [id number] Measured data: Right atrial lead: P-waves measured 1.6 mV. Pacing threshold 0.75 volts at 0.4 milliseconds with a pacing impedance of 551 Ohms Right ventricular lead: In the bipolar configuration R-waves measured 19.5 mV. Pacing threshold was 1 volts at 0.4 milliseconds with a pacing impedance of 817 Ohms Impression: Successful implantation of dual-chamber permanent pacemaker with left bundle pacing lead [facility] Electrophysiology codes Pacing Procedure 1: Pacin Insert/Replace Pacer A & V PG Moderate Sedation Codes Moderate Sedation Codes Procedure 1: Sedation/Anesthesia: 32893 Mod Sedation by the same physician;Init15 Min Child Age 5 & Up Procedure 2: Sedation/Anesthesia: 98771 Mod Sedation by the same physician; Ea [id number] Minutes
[2023-04-30] MEDS: ACETAMINOPHEN 325 MG TAB PO PRN (23:06)
[2023-05-01] MEDS: ceFAZolin 1000MG 1,000 MG/7.5 ML SYR IV ONE (01:02)
[2023-05-01] MEDS: oxyCODONE HCL IR 5 MG TAB (IMMEDIATE RELEASE) PO PRN (04:04)
[2023-05-01 06:01] LABS: Basophils # (auto) 0.06 K/uL (0.00-0.20); Basophils % (auto) 0.8 %; Eosinophils # (auto) 0.16 K/uL (0.00-0.50); Eosinophils % (auto) 2.1 %; Hematocrit (blood only) 42.5 % (37.0-47.0); Hemoglobin 14.4 g/dl (12.0-16.0); Immature Granulocytes # (auto) 0.01 K/uL (0.01-0.20); Immature Granulocytes % (auto) 0.1 %; Lymphocytes # (auto) 1.88 K/uL (1.20-3.40); Mean Corpuscular Hemoglobin 31.5 pg (25.0-34.0); Mean Corpuscular Hgb Conc 33.9 g/dL (32.0-36.0); Mean Platelet Volume 10.4 fL (9.4-12.4); Monocytes # (auto) 0.71 K/uL (0.11-0.59); Monocytes % (auto) 9.4 %; Neutrophils % (auto) 62.6 %; Platelet Count 182 K/uL (130-400); RDW Coefficient of Variation 13.2 % (11.5-14.5); RDW Standard Deviation 45.3 fL (36.4-46.3); Red Blood Count 4.57 M/uL (4.20-5.40); White Blood Count 7.52 K/ul (4.8-10.8)
[2023-05-01 06:06] LABS: BUN Creatinine Ratio 20.4 (10-20); Calcium 9.1 mg/dl (8.6-10.3); Creatinine Clr Calc Pharmacy 39.5 ml/min; Est GFR (African American) 54.6 ml/min; Est GFR (Non-African American) 47.1 ml/min; Magnesium 2.2 mg/dl (1.7-2.4)
[2023-05-01 07:39] LABS: Influenza A virus by PCR Negative (Neg); Influenza B virus by PCR Negative (Neg); RSV by PCR Negative (Neg); SARS CoV2 RNA(COVID-19) Ceph NEGATIVE (Negative)
--- NOTE | 2023-05-01 07:39 | XRay Report ---
XR chest 2V PA/lateral HISTORY: 83 years-old Female EXACT TIME ORDERED Evaluate for pneumothorax and l status post placemen t of a left subclavian pacer COMPARISON: 04/29/2023 TECHNIQUE: PA and lateral views of the chest FINDINGS: Cardiac silhouette is mildly enlarged. Dual lead left subclavian pacer. Mild right diaphragmatic elev ation. There is no pneumothorax, pleural effusion or pulmonary edema. Bones appear grossly intact. IMPRESSION: Status post placement of a dual-lead left subclavian pacer. No postprocedural pneumothora x identified. ACT 112: Negative or not required by law. The above report was generated using voice recognition software. It may contain grammatical, syntax o r spelling errors. Electronically signed by: Claude Desai M.D. 05/01/2023 7:38 AM
--- NOTE | 2023-05-01 07:53 | Discharge Summary ---
Date of Service May 01, 2023 Admission HPI Per Admitting Provider Linda is an 83-year-old female who presented with weakness and fatigue and he was found to have third-degree heart block while in the ER. Patient presented to her PCP today for weakness and fatigue, and was referred to the ER for symptomatic bradycardia. She is on atenolol at baseline but has not taken this for 2 days. Comparison EKG 06/2007: Sinus with PVCs, MD 180 High-sensitivity troponin is not elevated EKG reviewed. Third-degree heart block. consistent P wave interval ~600ms, ventricular rate of ~40 with narrow qrs 76 consistent with third-degree heart block with junctional escape. Patient seen at the bedside with multiple family members present. She reports that she has had fatigue and global weakness which caused her to present to the ER after an evaluation for this showing bradycardia; she has not had chest pain or chest pressure at any point. She denies syncope. She has not had any falls. She denies palpitations. Denies history of A-fib/a flutter. Denies history of NM. She does not have pets, has not had any recent tick bites, and denies rashes. She does have some left knee arthritis for which she gets injections otherwise denies knee pain. No numbness/tingling or neuropathy. No focal extremity weakness. No vision change. No headache. No prior history of heart Medical History: Reviewed Medications: Reviewed Surgical History: Reviewed Family history: Reviewed Allergies: Reviewed Social History: Reviewed Code Status: Full Admission Exam Per Admitting Provider Gen.: No acute distress. Alert and oriented. HEENT: Anicteric sclera. Neck: No significant JVD. No bruits. Normal carotid upstrokes bilaterally. Cardiac: PMI was nondisplaced. No ventricular heave. Regular and bradycardic in the 30s. Normal S1-S2. 1/6 early peaking systolic ejection murmur best heard at the right upper sternal border. Pulmonary: Clear to auscultation bilaterally without wheezes, rales, or rhonchi. Abdomen: Soft, nontender, nondistended, with normoactive bowel sounds. No bruits noted. Extremities: 2+ radial pulses bilaterally. 2+ posterior tibialis pulses bilaterally. No edema or cyanosis. Psychiatric: Affect appears appropriate. Principal Diagnosis complete heart block Discharge Exam At the time of discharge the patient was feeling well. Oriented. Wound without hematoma. Minimal ecchymosis. No drainage. Mildly tender. Normal respiratory effort Discharge Data Allergies Allergy/AdvReac Type Severity Reaction Status Date / Time Penicillins Allergy Mild Rash Verified 04/29/23 11:32 amoxicillin [From Amoxil] AdvReac Rash Verified 04/29/23 11:32 Consultations 04/29/23 13:14 Consult Cardiology Routine 04/29/23 14:27 ED Decision to Admit Stat Procedures Performed Operation Date: 04/30/23 14:00 Actual Procedures p Pacer with A/V Leads (Dual) - Jag Quiros MD Ordered Studies 04/30/23 07:15 EP Lab Images for PACS ONCE Hospital Course (1) High-grade atrioventricular block: (2) Symptomatic bradycardia: (3) Hypertension: (4) Aortic valve sclerosis: Plan ASSESSMENT/PLAN: 1. High-grade AV block: No reversible cause. On 04/30/2023 she underwent implant of a dual chamber Medtronic pacemaker with left-bundle pacing lead. No complication. On the morning of discharge she was feeling well. Normal device function. CXR demonstrated good lead position and no PTX. 2. Hypertension: BP elevated during stay, but no atenolol given. Restarted at discharge. 3. Sclerotic aortic valve: Borderline stenosis. Discussed with patient. Can be followed over time with surveillance echo in approximately 3 to 5 years or sooner for signs or symptoms of more significant aortic stenosis. 4. Mild mitral regurgitation on her echocardiogram. This can be followed over time. Total Time Total Time Spent Total Time Spent (In Minutes): 20 Discharge Plan Discharge Items Patient Disposition: Home - Self-Care Reason For Visit: SYMPTOMATIC BRADYCARDIA Discharge Diagnosis: heart block Condition on Discharge: Good Activity: Resume your previous activity Lifting: No more than 10 pounds Lifting Comment: No lifting left arm above shoulder or behind neck for 6 weeks Bathing: Keep incision dry Bathing Comment: Keep wound dry and steri-strip intact until f/u next week Driving/Machine Use: Resume 1 day after discharge Non-emergency contact: [employer] Call non-emergency contact if: you have any medication questions, your symptoms worsen, you have a fever, your wound has increased redness and your wound has in creased drainage Follow-up/Referrals: Hemal,Jeanne L., DIRECTOR OF TRAINING [Primary Care Provider] - Diet: Heart Healthy Addtl Attending Provider Instructions: none Pending Studies at Discharge: No Stand-Alone Forms: [facility], Smoking Cessation Medications and DC Order Prescriptions: New oxycodone 5 mg tablet 5 mg PO Q4H PRN (Reason: pain) Qty: 5 0RF Continued atenolol 25 mg tablet 25 mg PO DAILY Qty: 90 3RF cholecalciferol (vitamin D3) 25 mcg (1,000 unit) tablet 25 mcg PO DAILY furosemide 20 mg tablet See Rx Instructions PO Q OTHER DAY PRN (Reason: Fluid Retention) Qty: 30 2RF Rx Instructions: Take 1/2 to 1 tablet PO every other day PRN; buspirone 5 mg tablet 5 mg PO TID Qty: 270 3RF famotidine [Pepcid] 20 mg tablet 20 mg PO DAILY glucosamine sulfate [Glucosamine] 500 mg tablet 500 mg PO TID Complete Multivitamin tablet 1 tab PO DAILY Discharge Orders: Discharge Order (Routine); Ordered 05/01/23 Ordered By: Jag Quiros Admission Data Admit Date/Time: 04/29/23 15:09 Attending Provider: Lisa Mckee Admit Provider: Ayaz Evangelista Primary Care Provider: Jeanne Recio Other Providers: Roque Broussard; Ayaz Evangelista Coding Level of Care Code 31601 IN/OBS DISCH 30 MIN/LESS Diagnoses High-grade atrioventricular block I44.39 Symptomatic bradycardia R00.1 Hypertension I10 Aortic valve sclerosis I35.8
--- NOTE | 2023-05-01 15:13 | Pharmacy Report ---
ED Pharmacist Progress Note - ED Pharmacist Progress Note Date of Service:: May 01, 2023 Notes:: Received call from [facility] re: prescription for oxycodone that was printed. Able to see in chart this prescription was entered and printed upstairs on [address]. Unable to determine why script was printed vs. sent electronically.
--- NOTE | 2023-05-01 18:15 | Electrocardiogram Report ---
Test Reason : Blood Pressure : / mmHG Vent. Rate : 077 BPM Atrial Rate : 077 BPM P-R Int : 144 ms QRS Dur : 132 ms QT Int : 462 ms P-R-T Axes : 010 140 109 degrees QTc Int : 522 ms Atrial-sensed ventricular-paced rhythm Abnormal ECG When compared with ECG of 30-APR-2023 06:02, Electronic ventricular pacemaker has replaced Sinus rhythm Vent. rate has increased BY 46 BPM Confirmed by Sergio Youngblood ([id number]) on 05/01/2023 6:15:01 PM Referred By: REFERRED SELF Confirmed By:Sergio Youngblood
== END 2023-05-01 11:31 | disposition home or self-care (01) | DRG 244 ==
LOC: ED 12:58 → SUATTDRO 15:09 → 4W 15:09

== ENCOUNTER 2025-01-05 14:48 | Inpatient (IN) ==
--- NOTE | 2025-01-05 15:36 | XRay Report ---
XR chest 1V portable CLINICAL HISTORY: sob COMPARISON STUDY: 05/01/2024 FINDINGS: The heart is mildly enlarged. There is a left subclavian dual-chamber central venous pacema ker present. There is mild central vascular prominence without evidence of overt edema. There is no l obar consolidation. There are no pleural effusions. IMPRESSION: Cardiomegaly with mild central pulmonary vascular prominence but no evidence of overt ed neptali. No evidence of focal pulmonary consolidation ACT 112: Negative or not required by law. Electronically signed by: Desmond Green M.D. 01/05/2025 3:34 PM
[2025-01-05 15:45] LABS: Hematocrit (blood only) 38.0 % (37.0-47.0); Hemoglobin 12.5 g/dl (12.0-16.0); Immature Granulocytes # (auto) 0.02 K/uL (0.01-0.20); Immature Granulocytes % (auto) 0.3 %; Mean Corpuscular Hemoglobin 32.1 pg (25.0-34.0); Mean Corpuscular Volume 97.4 fL (80.0-100.0); Platelet Count 185 K/uL (130-400); RDW Standard Deviation 54.8 fL (36.4-46.3); Red Blood Count 3.90 M/uL (4.20-5.40); White Blood Count 7.56 K/ul (4.8-10.8)
[2025-01-05 16:02] LABS: Alanine Aminotransferase 13.0 U/L (7-52); Albumin Globulin Ratio 0.9 (0.9-2); Albumin Level 3.7 gm/dl (3.4-5.0); Alkaline Phosphatase 86.0 U/L (34-104); Anion Gap 11.0 (3-11); Bilirubin,Total 2.1 mg/dl (0.2-1.0); Blood Urea Nitrogen 17.0 mg/dl (6-23); Calcium 9.8 mg/dl (8.6-10.3); Carbon Dioxide 24.0 mmol/L (21-32); Chloride 103.0 mmol/L (98-107); Creatinine Clr Calc Pharmacy 41.3 ml/min; Globulin 4.0 gm/dl (2.5-4.0); Glucose 169.0 mg/dl (70-99(Fasting)); Lipase 66.0 U/L (11-82); Magnesium 2.2 mg/dl (1.7-2.4); Potassium 3.6 mmol/L (3.5-5.1); Sodium 138.0 mmol/L (136-145); Total Protein 7.7 gm/dl (6.0-8.3)
[2025-01-05 16:09] LABS: INR 1.1 (0.9-1.1); Prothrombin Time 11.4 Seconds (9.0-12.0)
[2025-01-05 16:16] LABS: Thyroid Stimulating Hormone 3.056 uIu/ml (0.300-4.500)
--- NOTE | 2025-01-05 17:17 | Emergency Department Note ---
Impression & Plan Bilateral edema of lower extremity, Failure of outpatient treatment, Ambulatory dysfunction, CALIX (dyspnea on exertion) ED Provider Note ED Provider Note NAME: AMANDA PECK AGE:84 SEX: Female : 1940 ARRIVES VIA: Private vehicle INFORMANT: Patient ED PROVIDER(s): Verónica Constantino DO CHIEF COMPLAINT: Worsening leg swelling HPI: This is an 84-year-old female who presents to the emerged primary due to concern for worsening leg swelling over the course of the last month. She states she has seen her PCP several times. She states she was started on Lasix initially at 20 mg, this was then increased to 40 mg, and potassium was also added. She states she tries to elevate her legs when seated and at rest. She states her legs have continued to become more swollen and is more painful and difficult to walk. She states she also feels out of breath and tired even walking in her house. She denies any overt chest pain or abdominal pain. She denies any history of congestive heart failure or kidney problems. Patient does live alone. PAST MEDICAL HISTORY:See Below PAST SURGICAL HISTORY:See Below FAMILY HISTORY:See Below SOCIAL HISTORY:See Below HOME MEDICATIONS:See Below ALLERGIES:See Below VITALS:See Below PHYSICAL EXAMINATION: GENERAL: alert, well appearing, well nourished, no distress, non-toxic EYE EXAM: normal conjunctiva, PERRL and EOM's grossly intact OROPHARYNX: no exudate, no erythema, lips, buccal mucosa, and tongue normal and mucous membranes are moist NECK: supple, no nuchal rigidity, no adenopathy, non-tender LUNGS: Clear to auscultation. Normal chest wall mechanics, no w/r/r HEART: no murmurs, S1 normal and S2 normal ABDOMEN: abdomen soft, non-tender, normo-active bowel sounds, no masses, no rebound or guarding. SKIN: no rashes, petechiae, orbruising UPPER EXTREMITIES: upper extremities are grossly normal. FROM, nml pulses b/l. LOWER EXTREMITIES: 3+ b/l pitting edema up to the knees. FROM, nml pulses b/l. NEURO EXAM: Normal sensorium, cranial nerves II-XII grossly intact, normal speech, no facial droop,nogross weakness of arms, no gross weakness of legs. Gross sensation intact. No ataxia. Vital Signs: reviewed and remarkable Differential Diagnosis: pneumonia, bronchitis, COPD/Asthma exacerbation, congestive heart failure, acute coronary syndrome, CHACE, lymphedema, as well as others were considered MEDICAL DECISION MAKING: This is an 84 yo female who presents to the ER due to concern for persistent/worsening LE edema despite outpatient evaluations and lasix. She was afebrile and VS stable. Labs drawn and sent, IV established, EKG and CXR performed and interpreted at bedside, and patient placed on telemetry. Given worsening symptoms and evidence of pulmonary edema and reported CALIX, we discussed further inpatient mgmt. Case discussed with the hospitalist team for further evaluation. Patient given lasix while in the ER. No hypoxia at rest. Consultation(s): 1745: Discussed with Dr. Monteiro, CT hospitalist team, for additional evaluation and mgmt. ER Treatment Provided: See below Diagnostics Interpreted By Me: -ECG: Paced at 62, leftward axis, prolonged intervals consistent with pacing, nonspecific ST/T wave changes -Cardiac Monitoring: An order was placed for continuous cardiac monitoring. The monitor shows a rate of 62 with paced rhythm. -Laboratory studies: As stated above and show below. -Imaging studies: X-ray Chest: A single view study of the chest was reviewed and was negative for cardiomegaly, focal infiltrate, effusion, or wide mediastinum. Mild pulmonary edema. Triage Nursing Note Reviewed Prior/Outside Records Reviewed - recent outpatient echo from 1 month ago reviewed Past Med/Surg History Problem List (Updated 01/07/25 @ 06:28 by Efra Monteiro MD) Atrial fibrillation Acute CHF (congestive heart failure) CALIX (dyspnea on exertion) (Acute) Ambulatory dysfunction (Acute) Failure of outpatient treatment (Acute) Bilateral edema of lower extremity (Acute) Pulmonary hypertension Degenerative arthritis of knee, bilateral Chondrocalcinosis Bilateral knee pain Lower extremity edema Nephrolithiasis (Acute) 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 04/07/24 Microscopic hematuria (Chronic) Degenerative arthritis of knee, bilateral Pacemaker History of pacemaker Aortic valve sclerosis High-grade atrioventricular block Complete heart block (Acute) Degenerative joint disease of left knee Right hip pain Bilateral leg pain Sciatica Low back pain Peripheral edema Acute sinusitis Anxiety Esophageal reflux Hypertension Impaired fasting glucose Noncompliance with treatment Osteoarthritis Supraventricular tachycardia Thyroid disorder Vitamin D deficiency Medical History Symptomatic bradycardia Surgical History No pertinent past surgical history Family History Father Congestive heart failure Mother Myocardial infarction Denies family history of Ovarian cancer Prostate cancer Breast cancer Lung cancer Colorectal cancer Social History Smoking Status: Never smoker Second Hand Exposure: No; Do You Dip or Chew Tobacco: No; Hx Alcohol Use: No Hx Substance Use: No Preferred Language: Pashto Communication Ability: Effective Visual Impairment: No Limitations Hearing Ability: Normal Networking Engineer Required: No Beliefs That Will Affect Care: None marital status: / Current Living Situation: Alone current occupational status: retired Other Information That Helps Us Care for You: No Feels Safe at Home: Yes Safety Concerns: Feels Safe At This Time Childhood Exposure to Second-Hand Smoke: No Diet: regular caffeine: No during the past year weight has: remained stable Dental Care, Regularly: Yes Physical Activity Frequency: 1-2 Times per Week Seatbelt Use: always Sunscreen Use: No Assistive Devices: Cane and Glasses Allergies Allergies Allergy/AdvReac Type Severity Reaction Status Date / Time Penicillins Allergy Mild Rash Verified 11/23/24 14:33 amoxicillin [From Amoxil] AdvReac Rash Verified 11/23/24 14:33 Home Meds Home Medications Medication Instructions Recorded Confirmed famotidine 20 mg tablet (Pepcid) 0 mg PO DAILY 12/12/18 01/05/25 glucosamine sulfate 500 mg tablet 500 mg PO TID 12/12/18 01/05/25 (Glucosamine) furosemide 40 mg tablet 40 mg PO DAILY PRN Fluid Retention 01/05/25 01/05/25 Previous Rx's Medication Instructions Recorded potassium chloride 10 mEq 10 meq PO DAILY PRN edema #30 tabs 10/31/24 tablet,extended release buspirone 5 mg tablet 5 mg PO TID #270 tabs 11/07/24 atenolol 25 mg tablet 25 mg PO DAILY #90 tabs 11/29/24 Results & Data (ED) Vital Signs Vital Signs - 24 hr 01/05/25 14:51 01/05/25 15:10 01/05/25 15:15 Temperature 36.7 C Temperature Source Temporal Artery Scan Pulse Rate 64 63 Pulse Rate from SpO2 Sensor 63 Respiratory Rate 22 19 Respiratory Effort / Characteristics SOB on Exertion Respiratory Pattern Regular Blood Pressure 153/72 H 140/70 Blood Pressure Mean 99 108 Pulse Oximetry 96 95 Oxygen Delivery Method Room Air Sepsis Recent Fever Within 48 Hours No Sepsis New/Unexplained Change in Mental Status No Sepsis Action Taken by Nursing No Action Required 01/05/25 15:21 01/05/25 15:30 01/05/25 15:39 Temperature Temperature Source Pulse Rate 60 62 Pulse Rate from SpO2 Sensor 60 Respiratory Rate 23 Respiratory Effort / Characteristics Respiratory Pattern Blood Pressure 128/66 Blood Pressure Mean 108 Pulse Oximetry 96 Oxygen Delivery Method Sepsis Recent Fever Within 48 Hours Sepsis New/Unexplained Change in Mental Status Sepsis Action Taken by Nursing 01/05/25 15:39 01/05/25 15:57 01/05/25 16:00 Temperature Temperature Source Pulse Rate 60 60 Pulse Rate from SpO2 Sensor 60 60 Respiratory Rate 23 22 Respiratory Effort / Characteristics Respiratory Pattern Blood Pressure 141/73 H Blood Pressure Mean 106 Pulse Oximetry 94 96 Oxygen Delivery Method Sepsis Recent Fever Within 48 Hours Sepsis New/Unexplained Change in Mental Status Sepsis Action Taken by Nursing 01/05/25 16:03 01/05/25 16:21 01/05/25 16:30 Temperature Temperature Source Pulse Rate 60 60 Pulse Rate from SpO2 Sensor 60 60 Respiratory Rate 22 25 H Respiratory Effort / Characteristics Respiratory Pattern Blood Pressure 139/76 Blood Pressure Mean 118 Pulse Oximetry 96 97 Oxygen Delivery Method Sepsis Recent Fever Within 48 Hours Sepsis New/Unexplained Change in Mental Status Sepsis Action Taken by Nursing 01/05/25 16:33 01/05/25 16:51 01/05/25 17:00 Temperature Temperature Source Pulse Rate 60 61 Pulse Rate from SpO2 Sensor 60 61 Respiratory Rate 24 16 Respiratory Effort / Characteristics Respiratory Pattern Blood Pressure 134/68 Blood Pressure Mean 107 Pulse Oximetry 97 97 Oxygen Delivery Method Sepsis Recent Fever Within 48 Hours Sepsis New/Unexplained Change in Mental Status Sepsis Action Taken by Nursing 01/05/25 17:12 01/05/25 17:21 01/05/25 17:30 Temperature Temperature Source Pulse Rate 66 62 Pulse Rate from SpO2 Sensor 61 62 Respiratory Rate 18 27 H Respiratory Effort / Characteristics Respiratory Pattern Blood Pressure 137/79 Blood Pressure Mean 116 Pulse Oximetry 98 95 Oxygen Delivery Method Sepsis Recent Fever Within 48 Hours Sepsis New/Unexplained Change in Mental Status Sepsis Action Taken by Nursing 01/05/25 17:42 01/05/25 17:54 01/05/25 18:00 Temperature Temperature Source Pulse Rate 60 61 Pulse Rate from SpO2 Sensor 60 61 Respiratory Rate 24 29 H Respiratory Effort / Characteristics Respiratory Pattern Blood Pressure 141/76 H Blood Pressure Mean 108 Pulse Oximetry 96 95 Oxygen Delivery Method Sepsis Recent Fever Within 48 Hours Sepsis New/Unexplained Change in Mental Status Sepsis Action Taken by Nursing 01/05/25 18:06 01/05/25 18:27 01/05/25 18:30 Temperature Temperature Source Pulse Rate 60 61 Pulse Rate from SpO2 Sensor 60 61 Respiratory Rate 21 25 H Respiratory Effort / Characteristics Respiratory Pattern Blood Pressure 144/79 H Blood Pressure Mean 113 Pulse Oximetry 95 96 Oxygen Delivery Method Sepsis Recent Fever Within 48 Hours Sepsis New/Unexplained Change in Mental Status Sepsis Action Taken by Nursing 01/05/25 18:33 Temperature Temperature Source Pulse Rate 60 Pulse Rate from SpO2 Sensor Respiratory Rate 25 H Respiratory Effort / Characteristics Respiratory Pattern Blood Pressure Blood Pressure Mean Pulse Oximetry Oxygen Delivery Method Sepsis Recent Fever Within 48 Hours Sepsis New/Unexplained Change in Mental Status Sepsis Action Taken by Nursing Laboratory Data 01/06/25 07:21 01/07/25 06:31 Lab Results 01/05/25 Range/Units 15:16 WBC 7.56 (4.8-10.8) K/ul RBC 3.90 L (4.20-5.40) M/uL Hgb 12.5 (12.0-16.0) g/dl Hct 38.0 (37.0-47.0) % MCV 97.4 (80.0-100.0) fL MCH 32.1 (25.0-34.0) pg MCHC 32.9 (32.0-36.0) g/dL RDW Std Deviation 54.8 H (36.4-46.3) fL RDW Coeff of Kia 15.6 H (11.5-14.5) % Plt Count 185 (130-400) K/uL MPV 10.1 (9.4-12.4) fL Immature Gran % (Auto) 0.3 % Neut % (Auto) 67.8 % Lymph % (Auto) 20.6 % [place] % (Auto) 7.7 % Eos % (Auto) 2.8 % Baso % (Auto) 0.8 % Neut # (Auto) 5.13 (1.40-6.50) K/uL Lymph # (Auto) 1.56 (1.20-3.40) K/uL [place] # (Auto) 0.58 (0.11-0.59) K/uL Eos # (Auto) 0.21 (0.00-0.50) K/uL Baso # (Auto) 0.06 (0.00-0.20) K/uL Immature Gran # (Auto) 0.02 (0.01-0.20) K/uL PT 11.4 (9.0-12.0) Seconds INR 1.1 (0.9-1.1) Sodium 138 (136-145) mmol/L Potassium 3.6 (3.5-5.1) mmol/L Chloride 103 (98-107) mmol/L Carbon Dioxide 24 (21-32) mmol/L Anion Gap 11 (3-11) BUN 17 (6-23) mg/dl Creatinine 1.08 (0.6-1.2) mg/dl Est Cr Clr Drug Dosing 41.3 ml/min eGFR 50.34 BUN/Creatinine Ratio 15.7 (10-20) Glucose 169 H (70-99(Fasting)) mg/dl Calcium 9.8 (8.6-10.3) mg/dl Magnesium 2.2 (1.7-2.4) mg/dl Total Bilirubin 2.1 H (0.2-1.0) mg/dl AST 24 (13-39) U/L ALT 13 (7-52) U/L Alkaline Phosphatase 86 (34-104) U/L Troponin I High Sens 12.7 (0-14) pg/ml B-Natriuretic Peptide 671 H (0-100) pg/ml Total Protein 7.7 (6.0-8.3) gm/dl Albumin 3.7 (3.4-5.0) gm/dl Globulin 4.0 (2.5-4.0) gm/dl Albumin/Globulin Ratio 0.9 (0.9-2) Lipase 66 (11-82) U/L TSH 3.056 (0.300-4.500) uIu/ml Administered Medications Apixaban (Apixaban 5 Mg Tablet) 5 mg PO BID DELMI Stop: 02/06/25 12:14 Last Admin: 01/07/25 13:00 Dose: Not Given Documented By: TLM Buspirone HCl (Buspirone 5 Mg Tab) 5 mg PO TID DELMI Stop: 02/04/25 20:59 Last Admin: 01/07/25 14:22 Dose: 5 mg Documented By: Admin: 01/07/25 09:15 Dose: 5 mg Documented By: Admin: 01/06/25 20:23 Dose: 5 mg Documented By: CORNELIO(2) Admin: 01/06/25 13:17 Dose: 5 mg Documented By: Admin: 01/06/25 08:35 Dose: 5 mg Documented By: Admin: 01/05/25 21:23 Dose: 5 mg Documented By: JEM Enoxaparin Sodium (Enoxaparin Inj 40 Mg/0.4 Ml Syr) [facility] [place] Stop: 02/05/25 08:59 Last Admin: 01/07/25 09:15 Dose: Not Given Documented By: Admin: 01/06/25 08:35 Dose: Not Given Documented By: CORNELIO Famotidine (Famotidine 20 Mg Tab) 20 mg PO DAILY DELMI Stop: 02/05/25 08:59 Last Admin: 01/07/25 09:15 Dose: 20 mg Documented By: Admin: 01/06/25 08:35 Dose: 20 mg Documented By: CORNELIO Furosemide (Furosemide 40 Mg/4 Ml Vial) 40 mg IV DAILY DELMI Stop: 02/05/25 08:59 Last Admin: 01/07/25 09:15 Dose: 40 mg Documented By: Admin: 01/06/25 08:35 Dose: 40 mg Documented By: CORNELIO Metoprolol Succinate (Metoprolol Succ 25mg Ext Rel Tab) [facility] [place] Stop: 02/06/25 08:59 Last Admin: 01/07/25 09:15 Dose: 25 mg Documented By: CORNELIO Discontinued Medications Atenolol (Atenolol 25 Mg Tablet) 25 mg PO DAILY DELMI Stop: 02/05/25 08:59 Last Admin: 01/06/25 08:35 Dose: 25 mg Documented By: JUNEM Furosemide (Furosemide 40 Mg/4 Ml Vial) 40 mg IV ONE ONE Stop: 01/05/25 17:21 Last Admin: 01/05/25 18:13 Dose: 40 mg Documented By: TNK Potassium Chloride (Potassium Chloride Crtab 20 Meq Tabcr) 40 meq PO NOW STA Stop: 01/05/25 17:21 Last Admin: 01/05/25 18:13 Dose: 40 meq Documented By: TNK Imaging Data Radiologist's Impression: Chest X-Ray 01/05/25 15:23 XR chest 1V portable CLINICAL HISTORY: sob COMPARISON STUDY: 05/01/2024 FINDINGS: The heart is mildly enlarged. There is a left subclavian dual-chamber central venous pacemaker present. There is mild central vascular prominence without evidence of overt edema. There is no lobar consolidation. There are no pleural effusions. IMPRESSION: Cardiomegaly with mild central pulmonary vascular prominence but no evidence of overt edema. No evidence of focal pulmonary consolidation ACT 112: Negative or not required by law. Electronically signed by: Desmond Green M.D. 01/05/2025 3:34 PM Discharge Plan Visit Data Chief Complaint: Swelling/Edema to Extremity Stated Complaint: SWOLLEN LEGS ED Provider: Verónica Constantino Discharge Problem: Bilateral edema of lower extremity, Failure of outpatient treatment, Ambulatory dysfunction, CALIX (dyspnea on exertion) Patient Disposition: Admitted As Inpatient Condition: Fair Discharge Instructions Interventions: ED Discharge Assessment Last Done: 01/05/25 20:07
--- NOTE | 2025-01-05 17:46 | History & Physical Report ---
Date of Service January 05, 2025 History of Present Illness Primary Care Provider: HUMA Villalobos Allergies Allergy/AdvReac Type Severity Reaction Status Date / Time Penicillins Allergy Mild Rash Verified 11/23/24 14:33 amoxicillin [From Amoxil] AdvReac Rash Verified 11/23/24 14:33 Home Medications Medication Instructions Recorded Confirmed Type famotidine 20 mg tablet (Pepcid) 0 mg PO DAILY 12/12/18 01/05/25 History glucosamine sulfate 500 mg tablet 500 mg PO TID 12/12/18 01/05/25 History (Glucosamine) potassium chloride 10 mEq 10 meq PO DAILY PRN edema #30 tabs 10/31/24 01/05/25 Rx tablet,extended release buspirone 5 mg tablet 5 mg PO TID #270 tabs 11/07/24 01/05/25 Rx atenolol 25 mg tablet 25 mg PO DAILY #90 tabs 11/29/24 01/05/25 Rx furosemide 40 mg tablet 40 mg PO DAILY PRN Fluid Retention 01/05/25 01/05/25 History Past Med/Surg History Problem List (Updated 01/05/25 @ 17:16 by Verónica Constantino DO) CALIX (dyspnea on exertion) (Acute) Ambulatory dysfunction (Acute) Failure of outpatient treatment (Acute) Bilateral edema of lower extremity (Acute) Pulmonary hypertension Degenerative arthritis of knee, bilateral Chondrocalcinosis Bilateral knee pain Lower extremity edema Nephrolithiasis (Acute) 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 04/07/24 Microscopic hematuria (Chronic) Degenerative arthritis of knee, bilateral Pacemaker History of pacemaker Aortic valve sclerosis High-grade atrioventricular block Complete heart block (Acute) Degenerative joint disease of left knee Right hip pain Bilateral leg pain Sciatica Low back pain Peripheral edema Acute sinusitis Anxiety Esophageal reflux Hypertension Impaired fasting glucose Noncompliance with treatment Osteoarthritis Supraventricular tachycardia Thyroid disorder Vitamin D deficiency Medical History Symptomatic bradycardia Surgical History No pertinent past surgical history Family History Father Congestive heart failure Mother Myocardial infarction Denies family history of Ovarian cancer Prostate cancer Breast cancer Lung cancer Colorectal cancer Social History Smoking Status: Never smoker Second Hand Exposure: No; Do You Dip or Chew Tobacco: No; Hx Alcohol Use: No Hx Substance Use: No Preferred Language: Maori Communication Ability: Effective Visual Impairment: No Limitations Hearing Ability: Normal Print Decorator Required: No Beliefs That Will Affect Care: None marital status: / Current Living Situation: Alone current occupational status: retired Feels Safe at Home: Yes Childhood Exposure to Second-Hand Smoke: No Diet: regular caffeine: No during the past year weight has: remained stable Dental Care, Regularly: Yes Physical Activity Frequency: 1-2 Times per Week Seatbelt Use: always Sunscreen Use: No Assistive Devices: Cane Results & Data Results & Data Vital Signs (Past 12 Hours) Vital Signs Temp Pulse Resp BP Pulse Ox O2 Del Method 01/05/25 16:03 60 22 96 01/05/25 16:00 141/73 H 01/05/25 15:57 60 22 96 01/05/25 15:39 60 23 94 01/05/25 15:39 62 01/05/25 15:30 128/66 01/05/25 15:21 60 23 96 01/05/25 15:15 63 19 95 01/05/25 15:10 140/70 01/05/25 14:51 36.7 C 64 22 153/72 H 96 Room Air PG Care Time/CCT Total # of Minutes Spent Total Time Spent with Patient: Total time spent is greater than 50% in coordination of care (as documented) at patient's floor/unit and/or counseling patient: Coding
[2025-01-05] MEDS: FUROSEMIDE 40 MG/4 ML VIAL IV ONE (18:13)
[2025-01-05] MEDS: POTASSIUM CHLORIDE CRTAB 20 MEQ TABCR PO STA (18:13)
[2025-01-05 19:02] LABS: Appearance Urine Clear (Clear); Glucose Urine UA Negative (Negative)
--- NOTE | 2025-01-05 19:09 | History & Physical Report ---
Date of Service January 05, 2025 Assessment & Plan (1) Bilateral edema of lower extremity: (2) Pulmonary hypertension: (3) CALIX (dyspnea on exertion): (4) Ambulatory dysfunction: (5) Failure of outpatient treatment: Javon Mckeon is a pleasant 84-year-old woman with past medical history of symptomatic bradycardia s/p pacemaker, hypertension, lower extremity edema, osteoarthritis, vitamin D deficiency, anxiety, and nephrolithiasis. She presented from home with worsening lower extremity edema. This has been an ongoing problem and has had her regimen adjusted in the outpatient setting however has not improved and now with dyspnea on exertion and ambulatory dysfunction secondary to lower extremity swelling and pain. #Bilateral lower extremity edema suspect multifactorial between pulmonary hypertension causing right sided HFpEF and dietary indiscretion - CXR on admission reveals cardiomegaly with mild central pulmonary vascular prominence but no evidence of overt edema - Bilateral lower extremity Dopplers ordered - Echocardiogram from 11/15/24 notes normal LV size, mild concentric LVH, EF 65- 70%, no regional wall motion abnormalities. Moderate-severe pulmonary hypertension with estimated PASP 55-60 mmHg, estimated RA 15 mmHg - Lasix 40 mg IV daily - Apply knee-high LAN hose bilaterally - Low Na diet - PT/OT consulted - Monitor BMP with ongoing diuretic use #Hypertensioncontinue atenolol 25 mg daily #Anxietycontinue BuSpar 5 mg TID #GERDcontinue famotidine 20 mg daily VTE PPx: Lovenox Dispo: Admit to med/tele Updated niece at bedside on admission Reviewed prior medical records History of Present Illness Chief Complaint: Bilateral lower extremity swelling Primary Care Provider: HUMA Villalobos Linda is a pleasant 84-year-old woman with past medical history of symptomatic bradycardia s/p pacemaker, hypertension, lower extremity edema, osteoarthritis, vitamin D deficiency, and nephrolithiasis. She presented from home with worsening lower extremity edema. At the time of my exam, the patient was lying in bed in no acute distress with her niece present. She states her lower extremity edema has been ongoing for 1-2 years. She reports this has acutely worsened over the past 1 month. She has seen her PCP regarding this on multiple occasions. She was initially started on Lasix 20 mg p.o daily, this was increased to 40 mg p.o. daily after no improvement on the 20 mg, and KCl 10 mEq supplement was added on with the 40 mg dosing. She reports that the 40 mg of Lasix also did not affect her lower extremity edema but did dry her mouth out significantly so she was instructed to alternate between Lasix 20 and 40 mg daily. She has began experiencing difficulty with ambulation due to her lower extremity swelling and pain. She reports dyspnea on exertion x a few weeks. She denies shortness of breath at rest or orthopnea. When discussing her diet, she reports she eats "anything and everything." She typically does not eat anything for breakfast, has [employer] for lunch every day, and typically has home-cooked meals for dinner. She denies frequent frozen meals or cans of soup. She does eat cans of vegetables and adds butter and seasoning. She does not use supplemental oxygen at baseline. No CPAP at night. Vitals on admission significant for elevated BP at 144/79, tachypnea with RR 25; vitals otherwise stable. Labs on admission are significant for elevated BNP at 671, elevated total bilirubin at 2.1. No leukocytosis. No anemia. No thrombocytopenia. Electrolytes WNL. Renal function WNL. Troponin negative at 12.7. TSH WNL. UA negative. CXR on admission reveals cardiomegaly with mild central pulmonary vascular prominence but no evidence of overt edema. No evidence of focal pulmonary consolidation. We discussed code status, patient wishes to be a DNR/DNI. Allergies Allergy/AdvReac Type Severity Reaction Status Date / Time Penicillins Allergy Mild Rash Verified 11/23/24 14:33 amoxicillin [From Amoxil] AdvReac Rash Verified 11/23/24 14:33 Home Medications Medication Instructions Recorded Confirmed Type famotidine 20 mg tablet (Pepcid) 0 mg PO DAILY 12/12/18 01/05/25 History glucosamine sulfate 500 mg tablet 500 mg PO TID 12/12/18 01/05/25 History (Glucosamine) potassium chloride 10 mEq 10 meq PO DAILY PRN edema #30 tabs 10/31/24 01/05/25 Rx tablet,extended release buspirone 5 mg tablet 5 mg PO TID #270 tabs 11/07/24 01/05/25 Rx atenolol 25 mg tablet 25 mg PO DAILY #90 tabs 11/29/24 01/05/25 Rx furosemide 40 mg tablet 40 mg PO DAILY PRN Fluid Retention 01/05/25 01/05/25 History Past Med/Surg History Problem List (Updated 01/07/25 @ 06:28 by Efra Monteiro MD) Atrial fibrillation Acute CHF (congestive heart failure) CALIX (dyspnea on exertion) (Acute) Ambulatory dysfunction (Acute) Failure of outpatient treatment (Acute) Bilateral edema of lower extremity (Acute) Pulmonary hypertension Degenerative arthritis of knee, bilateral Chondrocalcinosis Bilateral knee pain Lower extremity edema Nephrolithiasis (Acute) 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 04/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 Microscopic hematuria (Chronic) Degenerative arthritis of knee, bilateral Pacemaker History of pacemaker Aortic valve sclerosis High-grade atrioventricular block Complete heart block (Acute) Degenerative joint disease of left knee Right hip pain Bilateral leg pain Sciatica Low back pain Peripheral edema Acute sinusitis Anxiety Esophageal reflux Hypertension Impaired fasting glucose Noncompliance with treatment Osteoarthritis Supraventricular tachycardia Thyroid disorder Vitamin D deficiency Medical History Symptomatic bradycardia Surgical History No pertinent past surgical history Family History Father Congestive heart failure Mother Myocardial infarction Denies family history of Ovarian cancer Prostate cancer Breast cancer Lung cancer Colorectal cancer Social History Smoking Status: Never smoker Second Hand Exposure: No; Do You Dip or Chew Tobacco: No; Hx Alcohol Use: No Hx Substance Use: No Preferred Language: Albanian Communication Ability: Effective Visual Impairment: No Limitations Hearing Ability: Normal City Councilman Required: No Beliefs That Will Affect Care: None marital status: / Current Living Situation: Alone current occupational status: retired Other Information That Helps Us Care for You: No Feels Safe at Home: Yes Safety Concerns: Feels Safe At This Time Childhood Exposure to Second-Hand Smoke: No Diet: regular caffeine: No during the past year weight has: remained stable Dental Care, Regularly: Yes Physical Activity Frequency: 1-2 Times per Week Seatbelt Use: always Sunscreen Use: No Assistive Devices: Cane and Glasses Review of Systems Review of Systems: All systems reviewed & are unremarkable except as noted in HPI & below Respiratory: + dyspnea on exertion Physical Exam Physical Exam: General: No acute distress, nondiaphoretic, well-developed, well-nourished. Skin: Warm, dry. No rashes noted. Cardiac: Regular rate and rhythm without murmurs gallops or rubs. Pulm: Diminished at bases but otherwise clear to auscultation bilaterally without wheezes, rales or rhonchi. Normal respiratory effort. 96% on room air. Abdominal: Soft, nontender, nondistended. Bowel sounds present. Extremities: 3+ pitting edema to knees bilaterally. 1+ pitting edema from knees to mid thigh bilaterally. Diffuse mild tenderness to palpation of lower extremities bilaterally. Neuro: A&O x3. No focal neurological deficits. Results & Data Results & Data Vital Signs (Past 12 Hours) Vital Signs Temp Pulse Resp BP Pulse Ox O2 Del Method 01/05/25 18:33 60 25 H 01/05/25 18:30 144/79 H 01/05/25 18:27 61 25 H 96 01/05/25 18:06 60 21 95 01/05/25 18:00 141/76 H 01/05/25 17:54 61 29 H 95 01/05/25 17:42 60 24 96 01/05/25 17:30 137/79 01/05/25 17:21 62 27 H 95 01/05/25 17:12 66 18 98 01/05/25 17:00 134/68 01/05/25 16:51 61 16 97 01/05/25 16:33 60 24 97 01/05/25 16:30 139/76 01/05/25 16:21 60 25 H 97 01/05/25 16:03 60 22 96 01/05/25 16:00 141/73 H 01/05/25 15:57 60 22 96 01/05/25 15:39 60 23 94 01/05/25 15:39 62 01/05/25 15:30 128/66 01/05/25 15:21 60 23 96 01/05/25 15:15 63 19 95 01/05/25 15:10 140/70 01/05/25 14:51 98.1 F 64 22 153/72 H 96 Room Air Laboratory Results Reviewed CBC with differential, coagulation studies, CMP/chemistries, UA Diagnostic Findings Reviewed CXR Reviewed EKG Supervising Physician Co-Signing Physician Notes Attending Attestation & Admit Note: Pt seen/examined, chart reviewed, admit care plan d/w MARTHA Nance. I agree w/ the tatum components of her admission documentation. 84yo female with history of complete heart block s/p permanent pacemaker placement, HTN, GERD, and pseudogout presents with progressive LE edema extending all the way to her hips. Some debate over the time course of the edema but at minimum has been present for 1-2 months if not longer. Recently has noted some mild dyspnea on exertion. PMH/PSH/allergies/meds/sochx - reviewed VSS, afebrile, o2 sats wnl gen - NAD, pleasant neck - JVD to the jaw mouth - MMM heart - RRR, s1 s2, no murmur lungs - mild b/l basilar rales, no wheeze, no increased work of breathing abd - soft NT ND BS+ ext - 2-3+ pitting edema from feet to hips b/l, pulses b/l feet 2+ labs reviewed imaging reviewed EKG - pacing A/P: 1. acute HFpEF 2. complete heart block s/p pacemaker placement with ventricular pacing on EKG 3. h/o pulmonary HTN on echo 11/2024 4. HTN 5. GERD -agree with IV lasix 40mg daily -repeat limited echo -pacer interrogation -with pulm HTN advise sleep study as outpatient -cont beta fco for HTN, CHF, etc. -labs am -consider cards consult Efra Monteiro MD PG Care Time/CCT Total # of Minutes Spent Total Time Spent with Patient: Total time spent is greater than 50% in coordination of care (as documented) at patient's floor/unit and/or counseling patient: Coding Level of Care Code 87905 INT INP/OBS CARE 375MIN Diagnoses Bilateral edema of lower extremity R60.0 Pulmonary hypertension I27.20 CALIX (dyspnea on exertion) R06.09 Ambulatory dysfunction R26.2 Failure of outpatient treatment Z78.9
[2025-01-05] MEDS ORDERED: POLYETHYLENE (MIRALAX) 17 GM PACK PO PRN (20:36)
[2025-01-05] MEDS ORDERED: ACETAMINOPHEN 325 MG TAB PO PRN (20:36)
[2025-01-05] MEDS ORDERED: ONDANSETRON INJ 2 MG/ML 2 ML VIAL IV PRN (20:36)
[2025-01-05] MEDS ORDERED: MELATONIN 3 MG TAB PO PRN (20:36)
[2025-01-05] MEDS ORDERED: ALUMINUM/MAGNESIUM SUSP 30 ML UDC PO PRN (20:36)
[2025-01-05] MEDS: busPIRone 5 MG TAB PO SCH (21:23)
--- NOTE | 2025-01-05 21:32 | Electrocardiogram Report ---
Test Reason : Blood Pressure : */* mmHG Vent. Rate : 62 BPM Atrial Rate : 57 BPM P-R Int : * ms QRS Dur : 144 ms QT Int : 472 ms P-R-T Axes : * -34 -21 degrees QTcB Int : 479 ms Ventricular-paced rhythm Abnormal ECG When compared with ECG of 01-May-2024 17:18, Vent. rate has decreased by 25 bpm Confirmed by Roque Broussard ([id number]) on 01/05/2025 9:31:33 PM Referred By: Jeanne Recio Confirmed By: Roque Broussard
--- NOTE | 2025-01-05 23:19 | Ultrasound Report ---
Exam(s): US VENOUS BILATERAL LOWER EXTREMITIES EXAM: US Duplex Bilateral Lower Extremities Veins CLINICAL HISTORY: LE swelling, r/o DVT. OTHER: Other Notes: bilateral leg swelling per patient no obvious dvt seen BLE's at this time. limited due to edema in soft tissues, especially in the calf. TECHNIQUE: Real-time duplex ultrasound scan of the bilateral lower extremity veins integrating B-mode two-dimensional vascular structure, Doppler spectral analysis, color flow Doppler imaging and compression. COMPARISON: No relevant prior studies available. FINDINGS: Right deep veins: Unremarkable. No DVT in the right common femoral, femoral, proximal deep femoral or popliteal veins. The veins demonstrate normal color flow, are normally compressible, with normal phasic flow and/or augmentation response. Right superficial veins: Unremarkable. No thrombus in the visualized right great saphenous vein. Left deep veins: Unremarkable. No DVT in the left common femoral, femoral, proximal deep femoral or popliteal veins. The veins demonstrate normal color flow, are normally compressible, with normal phasic flow and/or augmentation response. Left superficial veins: Unremarkable. No thrombus in the visualized left great saphenous vein. Soft tissues: Bilateral edema. No popliteal cyst. IMPRESSION: No evidence of deep venous thrombosis. Bilateral lower extremity edema. Electronically signed by: Jaswinder Leonardo M.D. 01/05/25 23:18 PM
[2025-01-06 07:46] LABS: Hematocrit (blood only) 35.4 % (37.0-47.0); Hemoglobin 11.8 g/dl (12.0-16.0); Mean Corpuscular Hemoglobin 32.5 pg (25.0-34.0); Mean Corpuscular Volume 97.5 fL (80.0-100.0); Platelet Count 183 K/uL (130-400); RDW Standard Deviation 55.5 fL (36.4-46.3); Red Blood Count 3.63 M/uL (4.20-5.40); White Blood Count 6.32 K/ul (4.8-10.8)
[2025-01-06 08:09] LABS: Anion Gap 9.0 (3-11); Blood Urea Nitrogen 15.0 mg/dl (6-23); Calcium 9.4 mg/dl (8.6-10.3); Carbon Dioxide 27.0 mmol/L (21-32); Chloride 104.0 mmol/L (98-107); Creatinine Clr Calc Pharmacy 44.6 ml/min; Glucose 83.0 mg/dl (70-99(Fasting)); Potassium 4.0 mmol/L (3.5-5.1); Sodium 140.0 mmol/L (136-145)
[2025-01-06] MEDS: ATENOLOL 25 MG TABLET PO SCH (08:35)
[2025-01-06] MEDS: FAMOTIDINE 20 MG TAB PO SCH (08:35)
[2025-01-06] MEDS: FUROSEMIDE 40 MG/4 ML VIAL IV SCH (08:35)
[2025-01-06] MEDS: ENOXAPARIN INJ 40 MG/0.4 ML SYR SQ SCH (08:35)
--- NOTE | 2025-01-06 08:59 | Hospitalist Progress Note ---
Date of Service January 06, 2025 Assessment & Plan (1) Acute CHF (congestive heart failure): (2) Bilateral edema of lower extremity: (3) Pulmonary hypertension: (4) Adnexal mass: (5) Pacemaker: (6) Complete heart block: (7) Atrial fibrillation: Plan #acute HFpEF - -improving -diuresing well since admission with improved exam findings, improved dyspnea, stable labs, etc. -cont lasix 40mg daily -of note - no evidence of cirrhosis; no proteinuria; normal renal function; normal TSH -etiology of HFpEF?? -prior pacemaker interrogations have shown relatively frequent a.fib....is this the etiology?? -will obtain another interrogation while here -she is not on chronic anticoagulation -would recommend changing atenolol to meto succ or coreg -BMP in am #pacemaker status - -placed 04/[address] Quiros for complete heart block -request interrogation as most recent interrogations indicated she is in a.fib? -continue beta fco; consider changing atenolol to meto succ due to HF #pulmonary HTN - -echo early Nov 2024 showed mod-severe pulmonary HTN -limited echo this admission with normal PA pressures? -will d/w cardiology #adnexal mass - -will d/w patient if she wants additional imaging/work-up #GERD - -pepcid #anxiety - -cont buspar 5mg TID #DVT proph - -if pacer interrogation confirms she is in afib will recommend Eliquis 5mg BID (and would stop lovenox 40mg daily) Admission and Anticipated Discharge Date Admission Date: January 05, 2025 Subjective patient feels her LE edema is improved no dyspnea reported today tele - pacing no new complaints asks multiple questions about her lasix, etc. Review of Systems Review of Systems: cv - no orthopnea, no PND, no chest pain pulm - no dyspnea GI - no abd pain or N/V Physical Exam Physical Exam: gen - NAD, lying in bed neck - JVD to the jaw mouth - MMM heart - RRR, s1 s2, no murmur lungs - mild fine rales bases b/l, otherwise CTA b/l abd - soft NT ND BS+; +hepatojugular reflex ext - improved edema, but still 2+ from prox thighs down to feet b/l psych - a/o x 3 Results & Data Results & Data Vital Signs (Past 12 Hours) Vital Signs Temp Pulse Pulse Resp BP Pulse Ox O2 Del Method 01/06/25 07:54 36.5 C 72 20 131/72 99 Room Air 01/06/25 06:45 62 01/06/25 03:22 36.9 C 64 18 144/77 H 94 Room Air 01/06/25 00:19 36.2 C L 67 18 145/81 H 95 Room Air 01/05/25 21:41 62 01/05/25 21:32 Room Air 01/05/25 21:30 36.3 C L 87 18 155/82 H 93 Room Air Laboratory Results Laboratory Results - last 24 hr 01/06/25 07:21 WBC 6.32 RBC 3.63 L Hgb 11.8 L Hct 35.4 L MCV 97.5 MCH 32.5 MCHC 33.3 RDW Std Deviation 55.5 H RDW Coeff of Kia 15.4 H Plt Count 183 MPV 10.0 Sodium 140 Potassium 4.0 Chloride 104 Carbon Dioxide 27 Anion Gap 9 BUN 15 Creatinine 1.00 Est Cr Clr Drug Dosing 44.6 eGFR 55.21 BUN/Creatinine Ratio 15.0 Glucose 83 Calcium 9.4 Diagnostic Findings Echo - preserved EF, normal LV wall motion, normal RV function, no pulmonary HTN, normal valve function PG Care Time/CCT Total # of Minutes Spent Total Time Spent with Patient: Total time spent is greater than 50% in coordination of care (as documented) at patient's floor/unit and/or counseling patient: Coding Level of Care Code 86045 SUB INP/OBS CARE 2/35MIN Diagnoses Acute CHF (congestive heart failure) I50.9 Bilateral edema of lower extremity R60.0 Pulmonary hypertension I27.20 Adnexal mass N94.89 Pacemaker Z95.0 Complete heart block I44.2 Atrial fibrillation I48.91
--- NOTE | 2025-01-06 15:52 | XCELERA ---
[id number]
[2025-01-07 07:55] LABS: Anion Gap 8.0 (3-11); Blood Urea Nitrogen 20.0 mg/dl (6-23); Calcium 9.7 mg/dl (8.6-10.3); Carbon Dioxide 30.0 mmol/L (21-32); Chloride 103.0 mmol/L (98-107); Creatinine Clr Calc Pharmacy 39.5 ml/min; Glucose 85.0 mg/dl (70-99(Fasting)); Magnesium 2.2 mg/dl (1.7-2.4); Potassium 4.2 mmol/L (3.5-5.1); Sodium 141.0 mmol/L (136-145)
[2025-01-07] MEDS: METOPROLOL SUCC 25MG EXT REL TAB PO SCH (09:15)
[2025-01-07] MEDS: APIXABAN 5 MG TABLET PO SCH (13:00)
--- NOTE | 2025-01-07 13:45 | Hospitalist Progress Note ---
Date of Service January 07, 2025 Assessment & Plan (1) Acute CHF (congestive heart failure): (2) Bilateral edema of lower extremity: (3) Pulmonary hypertension: (4) Adnexal mass: (5) Pacemaker: (6) Complete heart block: (7) Atrial fibrillation: Plan #acute HFpEF - -improving -cont lasix 40mg IV daily -daily weights, salt restricted diet, fluid restrict to 1800ml/day -of note - no evidence of cirrhosis; no proteinuria; normal renal function; normal TSH -etiology of HFpEF?? newly found a.fib in the last 6-12 months? -prior pacemaker interrogations have shown relatively frequent a.fib, and today's interrogation shows 100% a.fib burden -recommend changing atenolol to meto succ daily -BMP in am #pacemaker status - -placed 04/[address] Quiros for complete heart block -interrogation completed; pacing 100% of the time -continue beta fco; change atenolol to meto succ due to HF -a.fib on interrogation - see below #atrial fibrillation - -pacer interrogation 02/2024 - first mention of a.fib -all subsequent interrogations including today show 100% a.fib burden -discussed this in detail with patient -discussed stroke risk with patient -REFUSES to take anticoagulation at this time due to concern for side effects (bleeding), prior epistaxis, cost, etc.; I am hopeful she changes her mind given her high stroke risk with a.fib -change atenolol to meto succ -could be contributing to CHF -formal consult placed to Dr Quiros who knows her from cardiology clinic #pulmonary HTN - -echo early Nov 2024 showed mod-severe pulmonary HTN -limited echo this admission with normal PA pressures? #adnexal mass - -will d/w patient if she wants additional imaging/work-up #GERD - -pepcid #anxiety - -cont buspar 5mg TID #DVT proph - -lovenox daily -she is refusing systemic anticoagulation with Eliquis care d/w Dr Quiros from cardiology progressing Admission and Anticipated Discharge Date Admission Date: January 05, 2025 Subjective overall feeling well edema continues to improve dyspnea continues to improve she is adamant that she won't take Eliquis due to prior h/o epistaxis as well as cost she recalls that earlier this year she was prescribed Eliquis but it was "going to cost 400 dollars a month" she then states "I won't take that coumadin - it is rat poison" family at bedside during the visit we had lengthy discussion about her pacer interrogation showing underlying afib discussed her risk of stroke -- at least 7% risk based on her CHADs-VASc score Review of Systems Review of Systems: CV - no orthopnea, no PND, no chest pain pulm - no cough GI - no abd pain or N/V Physical Exam Physical Exam: gen - NAD, lying in bed neck - JVD to the jaw (vs prominent pulsations from a.fib) mouth - MMM heart - RRR, s1 s2, no murmur lungs - minimal fine rales bases b/l, otherwise CTA b/l abd - soft NT ND BS+; +hepatojugular reflex ext - improved edema, 1-2+ b/l shins and feet; wearing compression stockings psych - a/o x 3 Results & Data Results & Data Vital Signs (Past 12 Hours) Vital Signs Temp Pulse Pulse Resp BP Pulse Ox O2 Del Method 01/07/25 11:19 36.4 C L 62 18 137/79 94 Room Air 01/07/25 08:07 36.5 C 65 20 153/80 H 91 Room Air 01/07/25 06:45 60 01/07/25 03:45 36.5 C 60 18 159/74 H 98 Room Air Laboratory Results Laboratory Results 01/07/25 06:31 Sodium 141 Potassium 4.2 Chloride 103 Carbon Dioxide 30 Anion Gap 8 BUN 20 Creatinine 1.12 Est Cr Clr Drug Dosing 39.5 eGFR 48.19 BUN/Creatinine Ratio 17.9 Glucose 85 Calcium 9.7 Magnesium 2.2 PG Care Time/CCT Total # of Minutes Spent Total Time Spent with Patient: Total time spent is greater than 50% in coordination of care (as documented) at patient's floor/unit and/or counseling patient: Coding Level of Care Code 16485 SUB INP/OBS CARE 3/50MIN Diagnoses Acute CHF (congestive heart failure) I50.9 Bilateral edema of lower extremity R60.0 Pulmonary hypertension I27.20 Adnexal mass N94.89 Pacemaker Z95.0 Complete heart block I44.2 Atrial fibrillation I48.91
--- NOTE | 2025-01-07 15:33 | Cardiology Consultation ---
Date of Consultation January 07, 2025 Assessment & Plan (1) Atrial fibrillation: (2) Pulmonary hypertension: (3) Lower extremity edema: Plan 1. Atrial fibrillation: Relatively new diagnosis. Patient was informed of the need for anticoagulation when her atrial fibrillation was initially detected. However, she neglected to start anticoagulation due to cost and concerns over epistaxis. I reinforced the benefits of anticoagulation and my hope is that we can find a compromise. Started on apixaban. Perhaps Xarelto is less expensive. We generally avoid Pradaxa in her demographic. Warfarin is also an option but she has several friends who have referred to this as "rat poison". No concerns with rate control given her third-degree heart block. She continues to have an element of lassitude and fatigue which could be related to atrial fibrillation. Provide she is on systemic anticoagulation for the requisite amount of time we could consider cardioversion in the outpatient setting. 2. Edema: I would agree with the initial evaluation that this could in fact be right-sided heart failure. She does seem to have a dilated right ventricle on her echocardiogram. However, pulmonary pressure is not notably elevated on her current study. Possibly related to heart failure with preserved ejection fraction. Although, not much in the way of pulmonary vascular congestion. Main treatment would appear to be continued diuresis which at this point appears to be effective. 3. Mitral regurgitation: Moderate. This can be followed over time. 4. Normally functioning dual-chamber permanent pacemaker. In persistent atrial fibrillation. Unable to test threshold in the atrial lead, but sensing appears adequate. Normal RV pacing threshold. History of Present Illness Reason for Consultation: Congestive heart failure, atrial fibrillation Requesting Physician: Thania Attending Physician: Efra Monteiro MD History of Present Illness The patient is an 84-year-old woman with a history of complete heart block having undergone implantation of dual-chamber permanent pacemaker and early 2023. Recently she been experiencing symptoms of worsening lower extremity edema and difficulty with ambulation. He was started on diuretic therapy and an outpatient setting, but this appeared ineffective and she was eventually admitted to the hospital for more intensive treatment. It should be noted that on routine device monitoring over the course of the summer she was noted to have developed atrial fibrillation. Ventricular rates are well-controlled given her complete heart block. The patient has been unaware of any palpitations. She specifically denied any symptoms of dyspnea either at rest or with activity. She denied orthopnea. She has not had dizziness or lightheadedness. No exertional chest pain. She does appear to follow a high salt diet. In general she seems very sedentary. In addition to lower extremity edema she appears to have an element of arthritis as well. She has some discomfort in her feet and knees which limits her ambulation. She generally walks with a cane. She has affected a good diuresis here in the hospital she states that her symptoms are improved. She thinks her lower extremity edema is better. Allergies Allergy/AdvReac Type Severity Reaction Status Date / Time Penicillins Allergy Mild Rash Verified 11/23/24 14:33 amoxicillin [From Amoxil] AdvReac Rash Verified 11/23/24 14:33 Home Medications Medication Instructions Recorded Confirmed Type famotidine 20 mg tablet (Pepcid) 0 mg PO DAILY 12/12/18 01/05/25 History glucosamine sulfate 500 mg tablet 500 mg PO TID 12/12/18 01/05/25 History (Glucosamine) potassium chloride 10 mEq 10 meq PO DAILY PRN edema #30 tabs 10/31/24 01/05/25 Rx tablet,extended release buspirone 5 mg tablet 5 mg PO TID #270 tabs 11/07/24 01/05/25 Rx atenolol 25 mg tablet 25 mg PO DAILY #90 tabs 11/29/24 01/05/25 Rx furosemide 40 mg tablet 40 mg PO DAILY PRN Fluid Retention 01/05/25 01/05/25 History Patient History Medical History Symptomatic bradycardia Surgical History No pertinent past surgical history Family History Father Congestive heart failure Mother Myocardial infarction Denies family history of Ovarian cancer Prostate cancer Breast cancer Lung cancer Colorectal cancer Social History Smoking Status: Never smoker Second Hand Exposure: No; Do You Dip or Chew Tobacco: No; Hx Alcohol Use: No Hx Substance Use: No Preferred Language: Arabic Communication Ability: Effective Visual Impairment: No Limitations Hearing Ability: Normal 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 Beliefs That Will Affect Care: None marital status: / Current Living Situation: Alone current occupational status: retired Other Information That Helps Us Care for You: No Feels Safe at Home: Yes Safety Concerns: Feels Safe At This Time Childhood Exposure to Second-Hand Smoke: No Diet: regular caffeine: No during the past year weight has: remained stable Dental Care, Regularly: Yes Physical Activity Frequency: 1-2 Times per Week Seatbelt Use: always Sunscreen Use: No Assistive Devices: Cane and Glasses Review of Systems Review of Systems: Per HPI Physical Exam Physical Exam: She is alert and oriented x3. Mood affect appear normal. She answered all questions appropriately. HEENT: Sclerae are anicteric. Pupils are equal and reactive to light and accommodation. Extraocular movements were intact. Neuro: Cranial nerves intact Lungs: Bibasilar crackles. No expiratory wheezing. She has normal respiratory effort without use of accessory muscles. There is normal pulmonary excursion. Cardiac: The rhythm was regular. S1 and S2 were normal. There are no murmurs on examination. The PMI was not markedly displaced on palpation. Extremities: Patient has bilateral radial pulses that are equal in intensity. There is no evidence cyanosis or clubbing. Wearing surgical stockings. Mild lower extremity edema. Skin: There are no rashes noted on examination today. Results & Data Vital Signs (Past 12 Hours) Vital Signs Temp Pulse Pulse Resp BP Pulse Ox O2 Del Method 01/07/25 13:15 62 01/07/25 11:19 36.4 C L 62 18 137/79 94 Room Air 01/07/25 08:07 36.5 C 65 20 153/80 H 91 Room Air 01/07/25 06:45 60 01/07/25 03:45 36.5 C 60 18 159/74 H 98 Room Air Laboratory Results Abnormal Lab Results 01/07/25 06:31 Sodium 141 Potassium 4.2 Chloride 103 Carbon Dioxide 30 Anion Gap 8 BUN 20 Creatinine 1.12 Est Cr Clr Drug Dosing 39.5 eGFR 48.19 BUN/Creatinine Ratio 17.9 Glucose 85 Calcium 9.7 Magnesium 2.2 Diagnostic Findings Echocardiogram 01/06/2025: Normal LV systolic function with ejection fraction of 60 to 65%. Moderate mitral regurgitation. Moderately dilated left atrium. Normal RV systolic pressure. I performed Glee device interrogation of her dual-chamber permanent pacemaker. In atrial fibrillation currently. No intrinsic R waves. Normal threshold on the right ventricular lead both in the unipolar and bipolar setting. PG Care Time/CCT Total # of Minutes Spent Total Time Spent with Patient: Total time spent is greater than 50% in coordination of care (as documented) at patient's floor/unit and/or counseling patient: Coding Level of Care Code 12443 INT INP/OBS CARE 3/75MIN Diagnoses Atrial fibrillation I48.91 Pulmonary hypertension I27.20 Lower extremity edema R60.0 CPT Codes Dual Lead Pacemaker System - [id number] ([id number])
[2025-01-08 08:56] LABS: Anion Gap 8.0 (3-11); Blood Urea Nitrogen 19.0 mg/dl (6-23); Calcium 9.3 mg/dl (8.6-10.3); Carbon Dioxide 29.0 mmol/L (21-32); Chloride 103.0 mmol/L (98-107); Creatinine Clr Calc Pharmacy 46.1 ml/min; Glucose 74.0 mg/dl (70-99(Fasting)); Potassium 3.6 mmol/L (3.5-5.1); Sodium 140.0 mmol/L (136-145)
--- NOTE | 2025-01-08 12:11 | Cardiology Progress Note ---
Date of Service January 08, 2025 Assessment & Plan (1) Atrial fibrillation: (2) Pulmonary hypertension: (3) Lower extremity edema: Plan 1. Atrial fibrillation: Adequate rate control given her complete heart block. No overt symptoms other than her presentation with edema and perhaps some mild fatigue. No need for additional rate control agents. She has been maintained on atenolol as an outpatient and this seems reasonable to continue. We did have another discussion regarding anticoagulation. She is still opposed to anticoagulation over concerns about epistaxis. She mentioned her father's use of Sassafras tea as a therapeutic agent and even her friends employment of a biblical technique that she calls a "pow-wow" for addressing bleeding and clotting issues. I reinforced my recommendation for medical therapy and systemic anticoagulation. We again discussed the risks of not being on medications, specifically stroke. I also mentioned the option of a procedure to reduce a person's risk of stroke (ie left atrial appendage occlusion), but she did not appear to be interested in these types of treatments. 2. Edema: I think continue diuresis. Renal function electrolytes are stable. Difficult to gauge output as no output recorded in her record. 3. Mitral regurgitation: Moderate. This can be followed over time. 4. Normally functioning dual-chamber permanent pacemaker. In persistent atrial fibrillation. Unable to test threshold in the atrial lead, but sensing appears adequate. Normal RV pacing threshold. Admission and Anticipated Discharge Date Admission Date: January 05, 2025 Subjective This morning patient clinically feeling well. She was ambulatory with physical therapy. She states that her ability to walk is improving. She feels that her edema is improved. No dizziness or shortness of breath currently. Review of Systems Review of Systems: Per HPI Physical Exam Physical Exam: She is alert and oriented x3. Mood affect appear normal. She answered all questions appropriately. HEENT: Sclerae are anicteric. Pupils are equal and reactive to light and accommodation. Extraocular movements were intact. Neuro: Cranial nerves intact Lungs: Bibasilar crackles. No expiratory wheezing. She has normal respiratory effort without use of accessory muscles. There is normal pulmonary excursion. Cardiac: The rhythm was regular. S1 and S2 were normal. There are no murmurs on examination. The PMI was not markedly displaced on palpation. Extremities: Patient has bilateral radial pulses that are equal in intensity. There is no evidence cyanosis or clubbing. Moderate lower extremity edema. Skin: There are no rashes noted on examination today. Results & Data Vital Signs (Past 12 Hours) Vital Signs Temp Pulse Pulse Resp BP Pulse Ox O2 Del Method 01/08/25 12:00 36.4 C 60 18 131/71 95 Room Air 01/08/25 08:02 36.4 C L 63 20 157/82 H 93 Room Air 01/08/25 07:14 60 01/08/25 04:21 36.4 C L 64 18 146/80 H 95 Room Air 01/08/25 01:00 62 Laboratory Results Abnormal Lab Results 01/08/25 07:04 Sodium 140 Potassium 3.6 Chloride 103 Carbon Dioxide 29 Anion Gap 8 BUN 19 Creatinine 0.96 Est Cr Clr Drug Dosing 46.1 eGFR 57.98 BUN/Creatinine Ratio 19.8 Glucose 74 Calcium 9.3 PG Care Time/CCT Total # of Minutes Spent Total Time Spent with Patient: Total time spent is greater than 50% in coordination of care (as documented) at patient's floor/unit and/or counseling patient: Coding Level of Care Code 90625 SUB INP/OBS CARE 2/35MIN Diagnoses Atrial fibrillation I48.91 Pulmonary hypertension I27.20 Lower extremity edema R60.0
[2025-01-08] MEDS: POTASSIUM CHLORIDE CRTAB 20 MEQ TABCR PO SCH (18:09)
[2025-01-08] MEDS: FUROSEMIDE INJ 20 MG/2 ML VIAL IV ONE (18:09)
--- NOTE | 2025-01-08 19:04 | Hospitalist Progress Note ---
Date of Service January 08, 2025 Assessment & Plan (1) Acute CHF (congestive heart failure): (2) Bilateral edema of lower extremity: (3) Pulmonary hypertension: (4) Adnexal mass: (5) Pacemaker: (6) Complete heart block: (7) Atrial fibrillation: Plan #acute HFpEF - -improving -cont lasix 40mg IV daily ; will also give 2nd dose of lasix today 20mg IV x 1 at 5pm -BMP am -daily weights, salt restricted diet, fluid restrict to 1800ml/day -of note - no evidence of cirrhosis; no proteinuria; normal renal function; normal TSH -etiology of HFpEF?? newly found a.fib in the last 6-12 months? -prior pacemaker interrogations have shown relatively frequent a.fib, and this admission's interrogation shows 100% a.fib burden -recommend changing atenolol to meto succ daily -suspect we are approaching euvolemia #pacemaker status - -placed 04/[address] Quiros for complete heart block -interrogation completed; pacing 100% of the time -continue beta fco; changed atenolol to meto succ due to HF -a.fib on interrogation - see below #atrial fibrillation - -pacer interrogation 02/2024 - first mention of a.fib -all subsequent interrogations including this admission's showed 100% a.fib burden -discussed this in detail with patient -discussed stroke risk with patient -REFUSES to take anticoagulation at this time due to concern for side effects (bleeding), prior epistaxis, cost, jainism reasons, etc.; I am hopeful she changes her mind given her high stroke risk with a.fib -changed atenolol to meto succ -a.fib could be contributing to CHF -appreciate Dr Quiros's consult #pulmonary HTN - -echo early Nov 2024 showed mod-severe pulmonary HTN -limited echo this admission with normal PA pressures? -uncertain of how the PA pressures improved so quickly #adnexal mass - -will d/w patient if she wants additional imaging/work-up #GERD - -pepcid #anxiety - -cont buspar 5mg TID #DVT proph - -lovenox daily ordered - but patient refusing -she is refusing systemic anticoagulation with Eliquis for a.fib as well care d/w Dr Quiros from cardiology home next 1-2 days Admission and Anticipated Discharge Date Admission Date: January 05, 2025 Subjective tele overnight - pacing dyspnea on exertion essentially resolved edema cont to improve she is eating well still not willing to take anticoagulation citing personal, jainism reasons for such Review of Systems Review of Systems: cv - no cp, no orthopnea, no PND pulm - no cough, no dyspnea at rest GI - no nausea/emesis Physical Exam Physical Exam: gen - NAD, lying in bed neck - prominent pulsations from a.fib +/- ongoing JVD mouth - MMM heart - RRR, s1 s2, no murmur lungs - scant fine rales bases b/l, otherwise CTA b/l abd - soft NT ND BS+; +hepatojugular reflex ext - 1+ edema b/l shins and feet; edema nearly resolved in thighs; pulses b/l feet 2+ psych - a/o x 3 Results & Data Results & Data Vital Signs (Past 12 Hours) Vital Signs Temp Pulse Pulse Resp BP BP Pulse Ox 01/08/25 15:53 36.4 C L 65 18 131/74 92 01/08/25 12:36 61 01/08/25 12:00 36.4 C 60 18 131/71 95 01/08/25 08:20 01/08/25 08:02 36.4 C L 63 20 157/82 H 93 01/08/25 07:14 60 O2 Del Method 01/08/25 15:53 Room Air 01/08/25 12:36 01/08/25 12:00 Room Air 01/08/25 08:20 Room Air 01/08/25 08:02 Room Air 01/08/25 07:14 Laboratory Results Laboratory Results - last 24 hr 01/08/25 07:04 Sodium 140 Potassium 3.6 Chloride 103 Carbon Dioxide 29 Anion Gap 8 BUN 19 Creatinine 0.96 Est Cr Clr Drug Dosing 46.1 eGFR 57.98 BUN/Creatinine Ratio 19.8 Glucose 74 Calcium 9.3 PG Care Time/CCT Total # of Minutes Spent Total Time Spent with Patient: Total time spent is greater than 50% in coordination of care (as documented) at patient's floor/unit and/or counseling patient: Coding Level of Care Code 01989 SUB INP/OBS CARE 2/35MIN Diagnoses Acute CHF (congestive heart failure) I50.9 Bilateral edema of lower extremity R60.0 Pulmonary hypertension I27.20 Adnexal mass N94.89 Pacemaker Z95.0 Complete heart block I44.2 Atrial fibrillation I48.91
[2025-01-09 07:52] LABS: Anion Gap 9.0 (3-11); Blood Urea Nitrogen 23.0 mg/dl (6-23); Calcium 9.5 mg/dl (8.6-10.3); Carbon Dioxide 26.0 mmol/L (21-32); Chloride 103.0 mmol/L (98-107); Creatinine Clr Calc Pharmacy 36.2 ml/min; Glucose 88.0 mg/dl (70-99(Fasting)); Magnesium 2.1 mg/dl (1.7-2.4); Potassium 3.9 mmol/L (3.5-5.1); Sodium 138.0 mmol/L (136-145)
[2025-01-09] MEDS: busPIRone 5 MG TAB PO SCH (08:19)
--- NOTE | 2025-01-09 11:22 | Cardiology Progress Note ---
Date of Service January 09, 2025 Assessment & Plan (1) Atrial fibrillation: (2) Pulmonary hypertension: (3) Lower extremity edema: Plan 1. Atrial fibrillation: Persistent. Adequate rate control with her history of AV block. No overt symptoms. We again discussed the options for stroke risk reduction to include anticoagulation or left atrial appendage occlusion. However, she wishes to defer both at this time. 2. Edema: Much improved. It seems she could likely be discharged on an oral regimen of Lasix, perhaps daily at this point. 3. Mitral regurgitation: Moderate. This can be followed over time. 4. Normally functioning dual-chamber permanent pacemaker. In persistent atrial fibrillation. Unable to test threshold in the atrial lead, but sensing appears adequate. Normal RV pacing threshold. Cardiology will sign off at this point. Please feel free to contact us for additional questions or concerns prior to discharge. Thank you Admission and Anticipated Discharge Date Admission Date: January 05, 2025 Subjective This morning patient clinically feeling well. She was ambulatory to the bathroom without significant dyspnea or dizziness. She feels that her lower extremity edema is improved. Review of Systems Review of Systems: Per HPI Physical Exam Physical Exam: She is alert and oriented x3. Mood affect appear normal. She answered all questions appropriately. Ambulating with a cane HEENT: Sclerae are anicteric. Pupils are equal and reactive to light and accommodation. Extraocular movements were intact. Neuro: Cranial nerves intact Lungs: Clear to auscultation. No expiratory wheezing. Normal respiratory effort. Cardiac: The rhythm was regular. S1 and S2 were normal. There are no murmurs on examination. The PMI was not markedly displaced on palpation. Extremities: Patient has bilateral radial pulses that are equal in intensity. There is no evidence cyanosis or clubbing. Mild lower extremity edema. Skin: There are no rashes noted on examination today. Results & Data Vital Signs (Past 12 Hours) Vital Signs Temp Pulse Pulse Resp BP BP Pulse Ox 01/09/25 07:50 36.5 C 62 16 146/75 H 93 01/09/25 07:19 62 01/09/25 03:43 36.4 C 62 16 147/82 H 95 01/09/25 02:08 60 01/08/25 23:46 36.5 C 62 18 145/77 H 93 O2 Del Method 01/09/25 07:50 Room Air 01/09/25 07:19 01/09/25 03:43 Room Air 01/09/25 02:08 01/08/25 23:46 Room Air Laboratory Results Abnormal Lab Results 01/09/25 07:17 Sodium 138 Potassium 3.9 Chloride 103 Carbon Dioxide 26 Anion Gap 9 BUN 23 Creatinine 1.19 Est Cr Clr Drug Dosing 36.2 eGFR 44.81 BUN/Creatinine Ratio 19.3 Glucose 88 Calcium 9.5 Magnesium 2.1 PG Care Time/CCT Total # of Minutes Spent Total Time Spent with Patient: Total time spent is greater than 50% in coordination of care (as documented) at patient's floor/unit and/or counseling patient: Coding Level of Care Code 70429 SUB INP/OBS CARE 2/35MIN Diagnoses Atrial fibrillation I48.91 Pulmonary hypertension I27.20 Lower extremity edema R60.0
[2025-01-09 11:24] VITALS: RESP 18
[2025-01-09 13:03] VITALS: BP 131/76; PULSE 61; TEMP 97.5; O2SAT 96
--- NOTE | 2025-01-09 13:52 | Discharge Summary ---
Discharge Summary Date of Service January 09, 2025 Principal Dx & Hospital Course #1 = Principal Diagnosis (1) Acute CHF (congestive heart failure): (2) Bilateral edema of lower extremity: (3) Pulmonary hypertension: (4) Adnexal mass: (5) Pacemaker: (6) Complete heart block: (7) Atrial fibrillation: Plan #acute HFpEF - -improving -cont lasix 40mg IV daily ; will also give 2nd dose of lasix today 20mg IV x 1 at 5pm -BMP am -daily weights, salt restricted diet, fluid restrict to 1800ml/day -of note - no evidence of cirrhosis; no proteinuria; normal renal function; normal TSH -etiology of HFpEF?? newly found a.fib in the last 6-12 months? -prior pacemaker interrogations have shown relatively frequent a.fib, and this admission's interrogation shows 100% a.fib burden -recommend changing atenolol to meto succ daily -suspect we are approaching euvolemia #pacemaker status - -placed 04/[address] Quiros for complete heart block -interrogation completed; pacing 100% of the time -continue beta fco; changed atenolol to meto succ due to HF -a.fib on interrogation - see below #atrial fibrillation - -pacer interrogation 02/2024 - first mention of a.fib -all subsequent interrogations including this admission's showed 100% a.fib burden -discussed this in detail with patient -discussed stroke risk with patient -REFUSES to take anticoagulation at this time due to concern for side effects (bleeding), prior epistaxis, cost, anglican reasons, etc.; I am hopeful she changes her mind given her high stroke risk with a.fib -changed atenolol to meto succ -a.fib could be contributing to CHF -appreciate Dr Quiros's consult #pulmonary HTN - -echo early Nov 2024 showed mod-severe pulmonary HTN -limited echo this admission with normal PA pressures? -uncertain of how the PA pressures improved so quickly #adnexal mass - -will d/w patient if she wants additional imaging/work-up #GERD - -pepcid #anxiety - -cont buspar 5mg TID #DVT proph - -lovenox daily ordered - but patient refusing -she is refusing systemic anticoagulation with Eliquis for a.fib as well care d/w Dr Quiros from cardiology home next 1-2 days Admission HPI Per Admitting Provider Linda is a pleasant 84-year-old woman with past medical history of symptomatic bradycardia s/p pacemaker, hypertension, lower extremity edema, osteoarthritis, vitamin D deficiency, and nephrolithiasis. She presented from home with worsening lower extremity edema. At the time of my exam, the patient was lying in bed in no acute distress with her niece present. She states her lower extremity edema has been ongoing for 1-2 years. She reports this has acutely worsened over the past 1 month. She has seen her PCP regarding this on multiple occasions. She was initially started on Lasix 20 mg p.o daily, this was increased to 40 mg p.o. daily after no improvement on the 20 mg, and KCl 10 mEq supplement was added on with the 40 mg dosing. She reports that the 40 mg of Lasix also did not affect her lower extremity edema but did dry her mouth out significantly so she was instructed to alternate between Lasix 20 and 40 mg daily. She has began experiencing difficulty with ambulation due to her lower extremity swelling and pain. She reports dyspnea on exertion x a few weeks. She denies shortness of breath at rest or orthopnea. When discussing her diet, she reports she eats "anything and everything." She typically does not eat anything for breakfast, has [employer] for lunch every day, and typically has home-cooked meals for dinner. She denies frequent frozen meals or cans of soup. She does eat cans of vegetables and adds butter and seasoning. She does not use supplemental oxygen at baseline. No CPAP at night. Vitals on admission significant for elevated BP at 144/79, tachypnea with RR 25; vitals otherwise stable. Labs on admission are significant for elevated BNP at 671, elevated total bilirubin at 2.1. No leukocytosis. No anemia. No thrombocytopenia. Electrolytes WNL. Renal function WNL. Troponin negative at 12.7. TSH WNL. UA negative. CXR on admission reveals cardiomegaly with mild central pulmonary vascular prominence but no evidence of overt edema. No evidence of focal pulmonary consolidation. We discussed code status, patient wishes to be a DNR/DNI. Discharge Exam gen - NAD, lying in bed neck - prominent pulsations from a.fib +/- ongoing JVD mouth - MMM heart - RRR, s1 s2, no murmur lungs - scant fine rales bases b/l, otherwise CTA b/l abd - soft NT ND BS+; +hepatojugular reflex ext - 1+ edema b/l shins and feet; edema nearly resolved in thighs; pulses b/l feet 2+ psych - a/o x 3 Discharge Plan Discharge Items Patient Disposition: Home - Self-Care Reason For Visit: LEG SWELLING Discharge Diagnosis: 1. shortness of breath/leg swelling due to a form of congestive heart failure - MUCH improved 2. atrial fibrillation 3. pacemaker 4. right ovarian cyst - FOLLOW-UP with your family doctor for this; you will need a repeat ultrasound or CT scan of the ovary Activity: Resume your previous activity Non-emergency contact: Primary Care Provider and Residential Insurance Inspector Call non-emergency contact if: you have any medication questions and your symptoms worsen Follow-up/Referrals: Jeanne Recio CRNP [Primary Care Provider] - 01/17/25 2:00 pm (within 1 week) Jag Quiros MD [Physician] - (1-2 weeks for recheck of congestive heart failure ) Diet: Low Sodium (2gm) Fluids: 1800ml (7 cups) Addtl Attending Provider Instructions: Ms García, You were hospitalized due to fluid build-up in your legs & lungs due to a form of congestive heart failure called "diastolic congestive heart failure" (see handout on congestive heart failure). This is the most common type of heart failure that we see. It is a form of heart failure that can be controlled through medicines, lifestyle changes, etc. You improved nicely with IV furosemide. We checked your pacemaker and again we found that you are in atrial fibrillation ("Afib") all the time. It is possible that the afib is contributing some to your congestive heart failure. You were seen by Dr Quiros from cardiology. Our team recommended initiation of blood thinning medicine (anticoagulation) for the afib but you would like to defer on this for now. Please see handouts on afib, afib stroke risk, etc. Recommendations - 1. diuretic ("water pills") - -take furosemide 60mg each morning -new prescription sent to your pharmacy for you -start 01/10/25 2. take potassium supplement EVERY DAY each morning -new prescription sent to your pharmacy for you -start 01/10/25 3. STOP your atenolol and change to Metoprolol succinate 25mg once daily -new prescription sent to your pharmacy for you -start this tomorrow morning, 01/10 4. watch your salt intake each day. See handout on low-salt diet. Limit total salt consumption to no more than 2000mg in a 24-hour period. -high salt foods include - -fast foods ([employer], [employer], [employer], etc) -certain frozen goods (TV dinners, etc) -soup (canned, home-made in some cases, etc) -fried foods -potato chips, nachos, salted peanuts, etc 5. try to limit total fluid consumption to about 1800ml each 24-hour period. This total amount includes all fluids such as coffee, tea, water, juices, milk, soda, etc 6. check your weight every day in the morning on the same scale. If you gain more than 3 pounds over 1-2 days this may be fluid weight gain from congestive heart failure. Keep a log of your weights in a notebook Follow-up - see separate section Return to [facility] if - -you have worsening shortness of breath -you have chest pains -you have concerns about fluid weight-gain -you have severe dizziness or lightheadedness -any other concerns It was our pleasure to care for you! Addtl Women'S Lacrosse Coach Provider Instructions: Call 911 and go to the Emergency Room if: * You have tightness or pain in your chest that does not go away with rest or Nitroglycerin * You are very short of breath even with rest Call your doctor if any of the following symptoms or problems start or get worse: * Shortness of breath or difficulty breathing * Wake up at night short of breath * Chest pain * Cough * Swelling of your hands, fee, or legs * More fatigued or tired with your normal activity * Palpitations - sudden fast heart beats WEIGHT * Weigh yourself every morning after using the bathroom. * Use the same scale. * Wear the same amount of clothing. * Write your weight down on your chart. * Call your doctors if you gain more than 3 pounds in 1-2 days. This is often one of the first signs of fluid retention from congestive heart failure. MEDICATIONS * Use this discharge instruction sheet for instructions. * Take your medications at the time your doctor ordered. * Do not skip a dose of your medicines. * If you miss a dose of medicine, take as soon as possible, but DO NOT DOUBLE A DOSE. * Read your medicine information when you get home. * Know all of the side effects of your medicine. * Call your doctor's office if you have any side effects. * Be sure all of your doctors know what medicine and herbs you take (including cold, flu, and herbal medicine). * Pain Medicine: If you do not get relief from your pain, please call your doctor for help. Take the following with you to your follow-up doctor appointments: * Weight Chart * Medication List * List of questions Do not drink excessive alcohol, beer or wine. Pending Studies at Discharge: No Stand-Alone Forms: [employer], Smoking Cessation Medications and DC Order Prescriptions: New potassium chloride 20 mEq tablet extended release 20 meq PO DAILY Qty: 30 2RF Continued glucosamine sulfate [Glucosamine] 500 mg tablet 500 mg PO TID Patient Comments: 01/05- otc unable to verify Changed furosemide 20 mg tablet 60 mg PO QAM Qty: 90 2RF metoprolol succinate 25 mg tablet extended release 24 hr 25 mg PO DAILY Qty: 30 2RF famotidine [Pepcid] 20 mg tablet 20 mg PO DAILY Qty: 0 0RF Patient Comments: 01/05- otc/no fill history unable to verify buspirone 5 mg tablet 5 mg PO DIRECTED Qty: 270 3RF Rx Instructions: 2 tablets AM; 1 tablet PM. Discontinued potassium chloride 10 mEq tablet extended release 10 meq PO DAILY PRN (Reason: edema) Qty: 30 5RF Rx Instructions: Take 1 tablet with every furosemide dose Discharge Orders: Discharge Order (Routine); Ordered 01/09/25 Ordered By: Efra Mckeon/Other Patient Handouts: What Is Heart Failure, AFib Preventing Stroke, AFib, ED Low-Salt Diet Admission Data Admit Date/Time: 01/05/25 19:25 Attending Provider: Efra Monteiro Admit Provider: Efra Monteiro Primary Care Provider: Jeanne Recio Other Providers: Efra Monteiro; Jag Quiros Hospital Stay Data Consultations 01/05/25 17:47 ED Decision to Admit Stat 01/07/25 13:45 Consult Cardiology Routine Diagnostic Imagining Performed 01/05/25 20:36 US venous doppler LE BI Routine Pending Results Patient Have Any Pending Studies at Discharge: No Discharge Instructions Given to Patient (Per Discharging Provider) Ms García, Valentín were hospitalized due to fluid build-up in your legs & lungs due to a form of congestive heart failure called "diastolic congestive heart failure" (see handout on congestive heart failure). This is the most common type of heart failure that we see. It is a form of heart failure that can be controlled through medicines, lifestyle changes, etc. You improved nicely with IV furosemide. We checked your pacemaker and again we found that you are in atrial fibrillation ("Afib") all the time. It is possible that the afib is contributing some to your congestive heart failure. You were seen by Dr Quiros from cardiology. Our team recommended initiation of blood thinning medicine (anticoagulation) for the afib but you would like to defer on this for now. Please see handouts on afib, afib stroke risk, etc. Recommendations - 1. diuretic ("water pills") - -take furosemide 60mg each morning -new prescription sent to your pharmacy for you -start 01/10/25 2. take potassium supplement EVERY DAY each morning -new prescription sent to your pharmacy for you -start 01/10/25 3. STOP your atenolol and change to Metoprolol succinate 25mg once daily -new prescription sent to your pharmacy for you -start this tomorrow morning, 01/10 4. watch your salt intake each day. See handout on low-salt diet. Limit total salt consumption to no more than 2000mg in a 24-hour period. -high salt foods include - -fast foods ([employer], [employer], [employer], etc) -certain frozen goods (TV dinners, etc) -soup (canned, home-made in some cases, etc) -fried foods -potato chips, nachos, salted peanuts, etc 5. try to limit total fluid consumption to about 1800ml each 24-hour period. This total amount includes all fluids such as coffee, tea, water, juices, milk, soda, etc 6. check your weight every day in the morning on the same scale. If you gain more than 3 pounds over 1-2 days this may be fluid weight gain from congestive heart failure. Keep a log of your weights in a notebook Follow-up - see separate section Return to [facility] if - -you have worsening shortness of breath -you have chest pains -you have concerns about fluid weight-gain -you have severe dizziness or lightheadedness -any other concerns It was our pleasure to care for you! Coding Diagnoses Acute CHF (congestive heart failure) I50.9 Bilateral edema of lower extremity R60.0 Pulmonary hypertension I27.20 Adnexal mass N94.89 Pacemaker Z95.0 Complete heart block I44.2 Atrial fibrillation I48.91
[2025-01-09] MEDS ORDERED: busPIRone 5 MG TAB PO SCH (21:00)
== END 2025-01-09 15:47 | disposition home or self-care (01) | DRG 291 ==
LOC: ED 14:48 → 2N 19:25